=== PATIENT | female | born 2000 | race Hispanic/Latino ===

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

== ENCOUNTER 2023-03-25 09:58 | Emergency (ER) | payer SELFPAY ==
[2023-03-25] MEDS ORDERED: NA CHLORIDE 0.9% 1,000 ML ONE ×2 (10:31→11:53)
[2023-03-25] MEDS ORDERED: IBUPROFEN 200 MG TAB PO ONE (10:35)
[2023-03-25] MEDS ORDERED: ACETAMINOPHEN 500 MG TAB ONE (10:35)
[2023-03-25 11:02] LABS: Absolute Lymphocytes (CBC) 1.1 K/uL (0.7-4.9); Hematocrit 38.3 % (36.0-45.0); Lymphocytes % 6.1 % (15.3-44.8); MCV 86.2 fL (80-100); MPV 7.4 fL (7.6-11.3); Platelets 409 thou/uL (152-406); RBC Red Blood Cell Count 4.44 M/uL (3.86-4.86)
--- OUTSIDE RECORDS SUMMARY | 2023-03-25 11:20 | XMS REPORT | Continuity of Care Document ---
:2000 Author Organization [facility] t Address [address] [facility] [address] [place] [address] Care Team Providers Name Role Phone Salma Castellanos Attending Clinician Unavailable Doctor Unassigned, Reform Attending Clinician Unavailable Bharathi Chaney Admitting Clinician Unavailable Payers Payer Name Policy Type Policy Number Effective Date Expiration Date S ource Problems Condition Condition Condition Status Onset Resolution Last Treating Co mments Source Name Details Category Date Date Treatment Clinician Date Influenza Influenza Disease Active 2017-08 Uni vers vaccinatio vaccinatio 2 it y [place] [facility] Supervisio Supervisio Disease Active 2017-08 [place] of high n of high 2-06 ity of risk risk 00:00: [place] , , 00 Me dical antepartum antepartum Br anch Hypertrigl Hypertrigl Disease Active [place] yceridemia yceridemia 03-26 it y of 00:00: [place] [address] Medical Branch Allergies, Adverse Reactions, Alerts Allergy Allergy Status Severity Reaction(s) Onset Inactive Treating Comm ents Source Name Type Date Date Clinician No Known DA Active [facility] 812 Clear s 00:00: [address] No Known DA Active U [facility] Allergie 8-12 Clear s 00:00: [facility] Social History Social Habit Start Date Stop Date Quantity Comments Source ASSERTION 2018-05-14 [facility] 00:00:00 Medical Branch Alcohol intake 2019-04-29 2019-04-29 0 /d [facility] 00:00:00 00:00:00 Medical Branch Sex Assigned At [birth year] [facility] 00:00:00 00:00:00 Medical Branch Smoking Status Start Date Stop Date Source Never smoker [facility] Medications Ordered Filled Start Stop Current Ordering Indication Dosage Frequency Signature Comments Components Source Medication Medication Date Date Medication? Clinician (SIG) Name Name 2017-08 Yes [id number] 1{tbl} Take 1 U nivers multivitami 2-06 tablet by ity of n ( 00:00: mouth [place] VITAMIN) 00 daily. Medical tablet Branch 2017-08 Yes [id number] 1{tbl} Take 1 U nivers multivitami 2-06 tablet by ity of n ( 00:00: mouth [place] VITAMIN) 00 daily. [facility] Branch Immunizations Ordered Filled Immunization Date Status Comments Sourc e Immunization Name Name HPV9 2018-02-13 Completed [facility] 00:00[facility] [facility] HPV9 2018-02-13 Completed University 00:00:[address] [facility] HPV9 2017-12-12 Completed University 00:00:[address] [facility] HPV9 2017-12-12 Completed University 00:00:[address] [facility] TDAP (ADACEL) 2013-02-11 Completed University of VACCINE 00:00:[address] [facility] TDAP (ADACEL) 2013-02-11 Completed University of VACCINE 00:00:[address] [facility] Procedures Procedure Date / Time Performed Performing Clinician Ilac e EXTERNAL PROVIDER - 2019-03-26 05:01:00 Doctor Unassigned, [facility] Medical Branch Encounters Start End Encounter Admission Attending Care Care Encounter Source Date/Time Date/Time Type Type Clinicians Facility Department ID 2022-09-23 2022-09-23 Outpatient LIAN Castellanos, PAMELACL OUTD [id number] [facility] 14:53[facility]00 [facility]53[facility] 2021-05-04 2021-05-04 Letter Doctor JENNIFER [id number] Univers 00:00:00 00:00:00 (Out) Unassigned, DONTA [id number] ity of [facility] 4.2.7.2.686 [place] [id number] [facility] 044 Branch 2019-03-26 2019-03-26 Orders Doctor JENNIFER [id number] Univers 00:00:00 00:00:00 Only Unassigned, DONTA 350.1.13.10 ity of [place] [facility] 4.2.7.2.686 [place] [phone] [facility] 009 Branch Results Test Description Test Time Test Comments Results Result [facility] e Comments - US PELVIS 2022-09-24 COM[facility] 2000 Sex: F Name: ADA CALIX [facility] : 2000 Age/S: 22 / F [address] [place] [address] Bl Unit #: [id number] Loc: [place] [address] Phys: Salma Castellanos MD Acct: [id number] Dis Date: Status: DEP CLI PHONE #: [phone] Exam Date: 09/23/2022 180 FAX #: [phone] Reason: AMENORRHEA. EXAMS: CPT CODE: [id number] US PELVIS COMPLETE 39131 PROCEDURE INFORMATION: Exam: US Pelvis Complete (Transabdominal), Pelvis (Transvaginal), and US Duplex Artery or Vein (Ovaries) Limited Exam date and time: 09/23/2022 3:18 PM Age: 22 years old Clinical indication: Menstruation abnormalities; Amenorrhea TECHNIQUE: Imaging protocol: Real-time transabdominal and transvaginal pelvic ultrasound (complete) with image documentation. Transvaginal imaging was used for better evaluation of the endometrium, adnexa, and/or cervix. Real-time duplex ultrasound scan of the arterial or venous flow of the ovaries with B-mode, color Doppler flow and spectral waveform analysis. Complete Pelvis, Limited Duplex. Duplex exam was performed to evaluate for torsion and other vascular conditions. COMPARISON: No relevant prior studies available. FINDINGS: Uterus: The uterus measures 8.2 x 4.2 x 4.7 cm and demonstrates a thickened 1.6 cm endometrial stripe. There are small nabothian cysts in the cervix with trace fluid in the endocervical canal. Right ovary/adnexa: The right ovary measures 3.6 x 1.7 x 2.2 cm. No mass. Normal ovarian blood flow. Left ovary/adnexa: The left ovary measures 3.1 x 2.5 x 2.1 cm. No mass. Normal ovarian blood flow. Intraperitoneal space: No intraperitoneal fluid. Urinary bladder: Normal. IMPRESSION: 1. Thickened endometrial stripe, to be correlated with patient's menstrual phase. 2. Nabothian cysts in the cervix with trace fluid in the endocervical canal. at 1029 Reported and signed by: Jasen Suresh M.D. CC: Salma Castellanos MD Technologist: Sarah Belcher Trnrib Date/Time: 09/24/2022 (1029) OksanaTDO Orig Print D/T: S: 09/24/2022 (1029) Probe: PAGE 1 Signed Report - US TRANSVAGINAL 2022-09-24 NON OB 00:00:00 [facility] : 2000 Sex: F Name: ADA CALIX [facility] [place] : 2000 Age/S: 22 / F [address] [place] [address] Unit #: [id number] Loc: [place] [address] Phys: Salma Castellanos MD Acct: [id number] Dis Date: Status: DEP CLI PHONE #: [phone] Exam Date: 09/23/20221807 FAX #: [phone] Reason: AMENORRHEA. EXAMS: CPT CODE: [id number] [place] [address] PROCEDURE INFORMATION: Exam: US Pelvis Complete (Transabdominal), Pelvis (Transvaginal), and US Duplex Artery or Vein (Ovaries) Limited Exam date and time: 09/23/2022 3:18 PM Age: 22 years old Clinical indication: Menstruation abnormalities; Amenorrhea TECHNIQUE: Imaging protocol: Real-time transabdominal and transvaginal pelvic ultrasound (complete) with image documentation. Transvaginal imaging was used for better evaluation of the endometrium, adnexa, and/or cervix. Real-time duplex ultrasound scan of the arterial or venous flow of the ovaries with B-mode, color Doppler flow and spectral waveform analysis. Complete Pelvis, Limited Duplex. Duplex exam was performed to evaluate for torsion and other vascular conditions. COMPARISON: No relevant prior studies available. FINDINGS: Uterus: The uterus measures 8.2 x 4.2 x 4.7 cm and demonstrates a thickened 1.6 cm endometrial stripe. There are small nabothian cysts in the cervix with trace fluid in the endocervical canal. Right ovary/adnexa: The right ovary measures 3.6 x 1.7 x 2.2 cm. No mass. Normal ovarian blood flow. Left ovary/adnexa: The left ovary measures 3.1 x 2.5 x 2.1 cm. No mass. Normal ovarian blood flow. Intraperitoneal space: No intraperitoneal fluid. Urinary bladder: Normal. IMPRESSION: 1. Thickened endometrial stripe, to be correlated with patient's menstrual phase. 2. Nabothian cysts in the cervix with trace fluid in the endocervical canal. at 1029 Reported and signed by: Jasen Suresh M.D. CC: Salma Castellanos MD Technologist: Sarah Belcher Trnscb Date/Time: 09/24/2022 (3112) t.[email or web address] Orig Print D/T: S: 09/24/2022 (6165) Probe: [id number] PAGE 1 Signed Report SURGICAL SPECIMENS 2019-03-19 08:38:00 --------RUN DATE: 03/19/19 [place] [facility] *LIVE* PAGE 1 RUN TIME: 837 Specimen Inquiry RUN USER: INTERFACE --------PATIENT: ADA CALIX LOC: RADHA U #: [id number] AGE/SX: 18/F ROOM: [facility] RE03/15/19[facility] DR: Salma Castellanos MD : [birth year] BED: 1 DIS: STATUS: ADM IN TLOC: -------- SPEC #: [id number] RECD: 03/17/19 STATUS: DONNA REYES #: [id number] DELANEY: 03/17/19 [facility] DR: Salma Castellanos MD ENTERED: 03/18/19 SP TYPE: SURG SPEC OTHR DR: Jose Ramon Edmond JR, MD, Jaswinder J DOORDERED: LEVEL 4 CODES: [id number] - PLACENTA, NOS COPIES TO: Salma Castellanos MD [address] [place] [email or web address] Jose Ramon Edmond JR, MD [address] [address] Bharathi Chaney [address] [place] [address] PROCEDURES: LEVEL 4 (Incomplete) TISSUES: 1. PLACENTA, NOS - Placenta, 3rd trimester. FINAL DIAGNOSIS Placenta, 3rd trimester: Histologically mature schmitz placenta (545 g, 60th percentile for gestational age). GROSS AND MICROSCOPIC GROSS EXAMINATION: Received in formalin placenta is a 545 g 16 x 16 x 2.2 cm placenta. The surface is bluegray with tortuous vessels on the surface. Maternal surface is intact with some adherent hemorrhage. The centrally inserted 3 vessel umbilical cord measures 22 cm in length 1.1 cm in diameter. The membranes are thin and translucent. The parenchyma is beefy red with small calcifications SECTION CODE: (A) Membranes (B) umbilical cord (C)-(E) placental parenchyma. CONTINUED ON NEXT PAGE --------RUN DATE: 03/19/19 [place] [facility] *LIVE* PAGE 2 RUN TIME: 837 Specimen Inquiry RUN USER: INTERFACE --------SPEC #: [id number] PATIENT: ADA CALIX #[id number] (Continued) GROSS AND MICROSCOPIC (Continued) MICROSCOPIC EXAMINATION: Sections of the umbilical cord reveal three vessels without significant inflammation. The membranes are unremarkable. The surface of the placenta does not show a significant inflammatory infiltrate. Maturation is appropriate for gestational age. The underlying maternal decidua beneath the placenta contains a mixed inflammatory infiltrate. POST-OP DIAGNOSIS Congenital anomalies, delivered PRE-OP DIAGNOSIS Congenital anomalies Signed SIGNATURE ON FILE Dom Mullen DO 03/19/19 0838 -------- END OF REPORT CBC W/AUTO DIFF 2019-03-18 07:16:00 Test Item Value Reference Range Interpretation Comme nts WHITE BLOOD CELL (test code = WBC) 11.79 x10 3/uL 4.5-11.0 H RED BLOOD CELL (test code = RBC) 2.28 x10 6/uL 3.54-5.02 L HEMOGLOBIN (test code = HGB) 7.4 g/dL 11.0-15.0 L HEMATOCRIT (test code = HCT) 21.7 % 33.0-45.0 L MEAN CELL VOLUME (test code = MCV) 95.2 fL 81.0-99.0 N MEAN CELL HGB (test code = MCH) 32.5 pg 27.0-33.0 N MEAN CELL HGB CONCETRATION (test code = MCHC) 34.1 g/dL 33.0-37. 0 N RED CELL DISTRIBUTION WIDTH CV (test code = RDW) 13.3 % 11.5- 14.5 N RED CELL DISTRIBUTION WIDTH SD (test code = RDW-SD) 46.3 fL 37 .0-54.0 N PLATELET COUNT (test code = PLT) 141 x10 3/uL 150-400 L MEAN PLATELET VOLUME (test code = MPV) 9.2 fL 7.0-9.0 H NEUTROPHIL % (test code = NT%) 77.8 % 56.0-77.0 H IMMATURE GRANULOCYTE % (test code = IG%) 0.5 % 0.0-2.0 N LYMPHOCYTE % (test code = LY%) 16.5 % 14.0-32.0 N MONOCYTE % (test code = MO%) 4.7 % 4.8-9.0 L EOSINOPHIL % (test code = EO%) 0.3 % 0.3-3.7 N BASOPHIL % (test code = BA%) 0.2 % 0.0-2.0 N NUCLEATED RBC % (test code = NRBC%) 0.0 % 0-0 N NEUTROPHIL # (test code = NT#) 9.18 x10 3/uL 2.0-7.6 H IMMATURE GRANULOCYTE # (test code = IG#) 0.06 x10 3/uL 0.00-0.03 H LYMPHOCYTE # (test code = LY#) 1.95 x10 3/uL 1.0-3.8 N MONOCYTE # (test code = MO#) 0.55 x10 3/uL 0.1-0.8 N EOSINOPHIL # (test code = EO#) 0.03 x10 3/uL 0.0-0.2 N BASOPHIL # (test code = BA#) 0.02 x10 3/uL 0.0-0.2 N NUCLEATED RBC # (test code = NRBC#) 0.00 x10 3/uL 0.0-0.1 N MANUAL DIFF REQUIRED (test code = MDIFF) NO COMMENTS: POD #1 and #2COMPREHENSIVE METABOLIC [id number] 07:31:00 Test Item Value Reference Range Interpretation Comments SODIUM (test code = NA) 138 mEq/L 134-147 N POTASSIUM (test code = 4.0 mEq/L 3.4-5.0 N K) CHLORIDE (test code = 106 mEq/L 100-108 N CL) CARBON DIOXIDE (test 25 mEq/L 21-33 N code = CO2) ANION GAP (test code = 11 0-20 N GAP) GLUCOSE (test code = 67 mg/dL 70-110 L GLU) BLOOD UREA NITROGEN 11 mg/dL 7-18 N (test code = BUN) GLOMERULAR FILTRATION 92.4 110-120 L Units of measure = RATE (test code = GFR) ml/mi n/1.73 m2 CREATININE (test code = 0.8 mg/dL 0.6-1.3 N CREAT) TOTAL PROTEIN (test 4.4 g/dL 6.4-8.2 L code = PROT) ALBUMIN (test code = 1.90 g/dL 3.4-5.0 L ALB) CALCIUM (test code = 7.7 mg/dL 8.0-10.5 L CA) BILIRUBIN TOTAL (test 0.30 mg/dL 0.0-1.0 N code = BILT) SGOT/AST (test code = 25 IUnit/L 15-37 N AST) SGPT/ALT (test code = 12 IUnit/L 15-65 L ALT) ALKALINE PHOSPHATASE 107 IUnit/L 30-165 N TOTAL (test code = ALKP) COMMENTS: POD #1CBC W/AUTO [id number] 06:53:00 Test Item Value Reference Range Interpretation Comments WHITE BLOOD CELL (test code = 15.05 x10 3/uL 4.5-11.0 H WBC) RED BLOOD CELL (test code = 2.65 x10 6/uL 3.54-5.02 L RBC) HEMOGLOBIN (test code = HGB) 8.7 g/dL 11.0-15.0 L HEMATOCRIT (test code = HCT) 24.9 % 33.0-45.0 L MEAN CELL VOLUME (test code = 94.0 fL 81.0-99.0 N MCV) MEAN CELL HGB (test code = 32.8 pg 27.0-33.0 N MCH) MEAN CELL HGB CONCETRATION 34.9 g/dL 33.0-37.0 N (test code = MCHC) RED CELL DISTRIBUTION WIDTH CV 13.1 % 11.5-14.5 N (test code = RDW) RED CELL DISTRIBUTION WIDTH SD 44.9 fL 37.0-54.0 N (test code = RDW-SD) PLATELET COUNT (test code = 131 x10 3/uL 150-400 L PLT) MEAN PLATELET VOLUME (test 9.0 fL 7.0-9.0 N code = MPV) NEUTROPHIL % (test code = NT%) 80.4 % 56.0-77.0 H IMMATURE GRANULOCYTE % (test 0.7 % 0.0-2.0 N code = IG%) LYMPHOCYTE % (test code = LY%) 13.6 % 14.0-32.0 L MONOCYTE % (test code = MO%) 5.0 % 4.8-9.0 N EOSINOPHIL % (test code = EO%) 0.1 % 0.3-3.7 L BASOPHIL % (test code = BA%) 0.2 % 0.0-2.0 N NUCLEATED RBC % (test code = 0.0 % 0-0 N NRBC%) NEUTROPHIL # (test code = NT#) 12.09 x10 3/uL 2.0-7.6 H IMMATURE GRANULOCYTE # (test 0.11 x10 3/uL 0.00-0.03 H code = IG#) LYMPHOCYTE # (test code = LY#) 2.05 x10 3/uL 1.0-3.8 N MONOCYTE # (test code = MO#) 0.76 x10 3/uL 0.1-0.8 N EOSINOPHIL # (test code = EO#) 0.01 x10 3/uL 0.0-0.2 N BASOPHIL # (test code = BA#) 0.03 x10 3/uL 0.0-0.2 N NUCLEATED RBC # (test code = 0.00 x10 3/uL 0.0-0.1 N NRBC#) MANUAL DIFF REQUIRED (test NO code = MDIFF) COMMENTS: POD #1 and #2CORD ARTERIAL BLOOD [id number] 21:24:00 Test Item Value Reference Range Interpretation Comments CORD BLOOD PH (test code = PH/C) 7.23 7.20-7.30 N CORD BLOOD PCO2 (test code = 56 MMHG 45-50 H PCO2/C) CORD BLOOD PO2 (test code = 12 mmHg 15-25 L PO2/C) CORD BLOOD HCO3 (test code = 24 mmol/L 15-25 N HCO3/C) BASE EXCESS CORD (test code = -4.0 mmol/L -5-5 N CHAVO/C) O2 SATURATION (test code = O2S/C) 10 % 25-45 L RAPID PLASMA [id number] 11:21:00 Test Item Value Reference Range Interpretation Comments RAPID PLASMA REAGIN (test code = NONREACTIVE NONREACTIVE RPR) AG HEPATITIS B [id number] 11:21:00 Test Item Value Reference Range Interpretation Comments AG HEPATITIS B SURFACE NON REACTIVE INDEX NonReactive (test code = HBSAG) AB HIV 1 11:21:00 Test Item Value Reference Range Interpretation Comments AB HIV 1 2 (test code = NONREACTIVE INDEX NONREACTIVE [id number]) RAPID PLASMA [id number] 20:32:00 Test Item Value Reference Range Interpretation Comments RAPID PLASMA REAGIN (test code = RPR) NONREACTIVE AG HEPATITIS B [id number] 20:32:00 Test Item Value Reference Range Interpretation Comments AG HEPATITIS B SURFACE NON REACTIVE INDEX NonReactive (test code = HBSAG) AB HIV 1 20:32:00 Test Item Value Reference Range Interpretation Comments AB HIV 1 2 (test code = NONREACTIVE INDEX NONREACTIVE [id number]) RAPID PLASMA [id number] 15:21:00 Test Item Value Reference Range Interpretation Comments RAPID PLASMA REAGIN (test code = RPR) NONREACTIVE AG HEPATITIS B [id number] 15:21:00 Test Item Value Reference Range Interpretation Comments AG HEPATITIS B SURFACE NON REACTIVE INDEX NonReactive (test code = HBSAG) AB HIV 1 15:21:00 Test Item Value Reference Range Interpretation Comments AB HIV 1 2 (test code = JHS27RI) INDEX NONREACTIVE CBC W/AUTO [id number] 14:38:00 Test Item Value Reference Range Interpretation Comments WHITE BLOOD CELL (test code = 6.65 x10 3/uL 4.5-11.0 N WBC) RED BLOOD CELL (test code = 3.59 x10 6/uL 3.54-5.02 N RBC) HEMOGLOBIN (test code = HGB) 11.5 g/dL 11.0-15.0 N HEMATOCRIT (test code = HCT) 33.6 % 33.0-45.0 N MEAN CELL VOLUME (test code = 93.6 fL 81.0-99.0 N MCV) MEAN CELL HGB (test code = MCH) 32.0 pg 27.0-33.0 N MEAN CELL HGB CONCETRATION 34.2 g/dL 33.0-37.0 N (test code = MCHC) RED CELL DISTRIBUTION WIDTH CV 13.0 % 11.5-14.5 N (test code = RDW) RED CELL DISTRIBUTION WIDTH SD 44.8 fL 37.0-54.0 N (test code = RDW-SD) PLATELET COUNT (test code = 169 x10 3/uL 150-400 N PLT) MEAN PLATELET VOLUME (test code 9.0 fL 7.0-9.0 N = MPV) NEUTROPHIL % (test code = NT%) 68.3 % 56.0-77.0 N IMMATURE GRANULOCYTE % (test 0.9 % 0.0-2.0 N code = IG%) LYMPHOCYTE % (test code = LY%) 24.4 % 14.0-32.0 N MONOCYTE % (test code = MO%) 5.9 % 4.8-9.0 N EOSINOPHIL % (test code = EO%) 0.2 % 0.3-3.7 L BASOPHIL % (test code = BA%) 0.3 % 0.0-2.0 N NUCLEATED RBC % (test code = 0.0 % 0-0 N NRBC%) NEUTROPHIL # (test code = NT#) 4.55 x10 3/uL 2.0-7.6 N IMMATURE GRANULOCYTE # (test 0.06 x10 3/uL 0.00-0.03 H code = IG#) LYMPHOCYTE # (test code = LY#) 1.62 x10 3/uL 1.0-3.8 N MONOCYTE # (test code = MO#) 0.39 x10 3/uL 0.1-0.8 N EOSINOPHIL # (test code = EO#) 0.01 x10 3/uL 0.0-0.2 N BASOPHIL # (test code = BA#) 0.02 x10 3/uL 0.0-0.2 N NUCLEATED RBC # (test code = 0.00 x10 3/uL 0.0-0.1 N NRBC#) MANUAL DIFF REQUIRED (test code NO = DAVIS) - MRI ABDOMEN W/O [id number] 10:32:00 FAX: Abdirahman Fay MD [phone] [place]: St: PRE FAX: Bharathi Chaney [phone] ----- Name: ADA CALIX [facility] : 2000 Age/S: 18/F [address] [place] [address] Unit #: [id number] Loc: [place] [address] Phys: Abdirahman Shelton MD Acct: [id number] Dis Date: Status: PRE CLI PHONE #: [phone] Date: 11/20/2018 1319 FAX #: [phone] Reason: LEFT HYRDONEPHROSIS EXAMS: CPT CODE: [id number] MRI ABDOMEN W/O CON 46624 MRI WITHOUT IV CONTRAST 11/20/2018 AT 1117 HOURS. CLINICAL HISTORY: Left hydronephrosis by ultrasound. LMP: Not available at the time of dictation. REPORTED EGA: 23 weeks. COMPARISON STUDIES: None. ADMINISTERED CONTRAST: None. FINDINGS: Multiplanar SSFSE T2, T1 GRE and 2D FIESTA sequences of the fetus and maternal pelvis were obtained without IV contrast. Please note that examination is tailored for assessment of the abdomen and pelvis in an effort to address the sonographic abnormality and is not intended to serve as a full anatomy screening. For the latter please refer to the anatomy screening ultrasound. NEURAL AXIS: No acute intracranial finding. Themidline structures are well formed. No hydrocephalus or mass occupying lesion. Grossly unremarkable spine with no signs of spinal dysraphism. CHEST: Symmetric lung volumes are visualized. No diaphragmatic hernia. The cardiac silhouette is not enlarged. The cardiac apex projects to the left. ABDOMEN: Normal abdominal situs. Normal appearing right kidney in the right retroperitoneum without focal lesion or hydronephrosis. The left kidney is difficult to identify with a fluid filled stomach and multiple normal caliber bowel loops occupying most of the left abdomen. A urine distended bladder is noted with an approximately 14 x 13 mm fluid distended structure in the left pelvis superolaterally to the bladder dome. Definite origin of this structure is difficult to determine by motion and relatively decreased contrast resolution. A three-vessel umbilical cord is seen with normalcord insertion. OTHER FINDINGS: Anterior placenta with partial right wraparound. No placenta previa or retroplacental hemorrhage. The cervix is closed measuring 2.7 cm in length. MATERNAL ABDOMEN: Severe bilateral maternal hydronephrosis/hydroureter, presumably from distal extrinsic compression by thegravid uterus. Remaining solid organs show no gross focal abnormality. The maternal bladder is decomp ressed. No adnexal masses or free pelvic fluid. PAGE 1 Signed Report (CONTINUED) FAX: Abdirahman Fay MD [phone] [place]: St: PRE FAX: Bharathi Chaney [phone] Name: ADA CALIX [facility] : 2000 Age/S: 18/F [address] [place] [address] Bl Unit #: [id number] Loc: [place] [address] Phys: Abdirahman Shelton MD Acct: [id number] Dis Date: Status: PRE CLI PHONE #: [phone] Exam Date: 11/20/2018 1319 FAX #: [phone] Reason: LEFT HYRDONEPHROSIS EXAMS: CPT CODE: [id number] MRI ABDOMEN W/O CON 10220 (Continued) IMPRESSION: 1. Unremarkable right kidney with limited assessment of the left renal fossa by persistent movement and relatively decreased contrast resolution. 2. Indeterminate fluid distended structure in the left pelvis superolaterally to the bladder corresponding to the areaof reported abnormality by ultrasound. It is unclear whether this represents a hydronephrotic left pelvic kidney, GI duplication cyst or other cystic pelvic lesion. Follow-up MRI at a more advanced gestational age might be helpful to allow for interval growth and better delineation of the underlying anatomy. 3. Severe bilateral maternal hydronephrosis/hydroureter, presumably from distal extrinsic compression by the gravid uterus. 4. Right anterior placenta, nonprevia without retroplacental hemo rrhage. The cervix is closed. 5. No maternal adnexal masses. No free fluid. This case was reviewed with a second observer who agrees with the findings. SL: ER-H at 1032 Reported and signed by: jL Aguilar M.D. CC: Abdirahman Shelton MD; Bharathi Chaney DO Technologist: RT James(R)(MR) Trnscrd Date/Time/By: 11/23/2018 (1032) : By: [email or web address] Orig Print D/T: S: 11/23/2018 (1036) PAGE 2 Signed Report Notes Date/Time Note Provider Source 2019-03-19 11:15:00-00:[address] [facility] ([facility] OB Disch REPORT#:[id number] REPORT STATUS: Signed DATE:03/19/19 TIME: 1115 PATIENT: ADA CALIX UNIT #: [id number] ROOM/BED: [place] [address] : [birth year] AGE: 18 SEX: F ATTEND: Salomon Castellanos MD ADM AUTHOR: Salma Castellanos MD * ALL edits or amendments must be made on the [employer] Oy/computer document * Subjective Subjective Admission EGA (wks/days): 40 weeks EGA at delivery (wks/days): 40 weeks Objective General VS: Vital Signs Date Temp Pulse Resp B/P B/P Mean Pulse Ox FiO2 03/18-03/19 36.7-36.9 88-95 16-18 116-124/63-76 Last Documented: Result Date Time B/P 123/76 03/19 0743 Temp 36.9 03/19 0743 Pulse 92 03/19 0743 Resp 16 03/19 0743 B/P Mean 106.0 03/17 0806 Pulse Ox 99 03/17 0756 Patient Weight Weight (lb): 137 Weight (oz): Weight (kg): 62.142 Physical Exam Cardiac: normal rhythm, no clinically sig murmur , no gallops, no rubs Lungs: clear to auscultation, no rales, no rhonc hi Neuro: Exam: alert, oriented x3, normal speech Abdomen: post gravid, soft, no abnormal tenderne ss, no guarding, no rebound tenderness, normoactive bowel sounds Incision site: well approximated edges, dry, no drainage, no inflammation Uterus: non-tender Fundus: non-tender Lochia: normal Episiotomy or laceration: none Vulva/Perineum: edematous vulva CVA tenderness: none Lower extremities: Edema: trace Results Findings/Data: Laboratory Tests: 03/18 0445 Hematology WBC (4.5 - 11.0 x10 3/uL) 11.79 H RBC (3.54 - 5.02 x10 6/uL) 2.28 L Hgb (11.0 - 15.0 g/dL) 7.4 L Hct (33.0 - 45.0 %) 21.7 L MCV (81.0 - 99.0 fL) 95.2 MCH (27.0 - 33.0 pg) 32.5 MCHC (33.0 - 37.0 g/dL) 34.1 RDW (11.5 - 14.5 %) 13.3 Plt Count (150 - 400 x10 3/uL) 141 L MPV (7.0 - 9.0 fL) 9.2 H Neut % (Auto) (56.0 - 77.0 %) 77.8 H Lymph % (Auto) (14.0 - 32.0 %) 16.5 Livingston % (Auto) (4.8 - 9.0 %) 4.7 L Eos % (Auto) (0.3 - 3.7 %) 0.3 Baso % (Auto) (0.0 - 2.0 %) 0.2 Neut # (Auto) (2.0 - 7.6 x10 3/uL) 9.18 H Lymph # (Auto) (1.0 - 3.8 x10 3/uL) 1.95 Livingston # (Auto) (0.1 - 0.8 x10 3/uL) 0.55 Eos # (Auto) (0.0 - 0.2 x10 3/uL) 0.03 Baso # (Auto) (0.0 - 0.2 x10 3/uL) 0.02 Abs Immat Gran (auto) (0.00 - 0.03 x10 3/uL) 0. 06 H Add Manual Diff NO Immature Gran % (0.0 - 2.0 %) 0.5 Nucleated RBC % (0 - 0 %) 0.0 Nucleated RBCs # (Man) (0.0 - 0.1 x10 3/uL) 0.0 0 Discharge Summary Discharge Summary Date of admission: Date of admission: 03/15/19 Hospital course: induction of labor, primary LTC S in labor (for FHR abnormalities), nml postop/postpart care, vulva edema Baby A: status: live born Gender: male 1 minute: 8 5 minutes: 9 Plan: routine care, discharge today, ice pack to perineum Instructions: routine instr sheet given, instr a nd warnings rev'd, specific instr as noted Diet: regular Activity and restrictions: up ad marco, may shower , pelvic rest, no intercourse for 6 wks, no driving Contraception discussed: abstinence for 4-6 week s, will discuss at PP visit Discharge meds: Continue taking these medications: PNV/FE FUM/FA ( MULTIVITAMIN) 1 TAB TAB 1 TABLET ORAL DAILY. FERROUS SULFATE (FEOSOL) 325 MG TAB 325 MILLIGRAM ORAL DAILY. Start taking the following new medications: IBUPROFEN (MOTRIN) 800 MG TAB 800 MILLIGRAM ORAL EVERY 8 HR NEEDED. as nee ded for ABDOMINAL CRAMPS Qty = 45 No Refills ACETAMINOPHEN/CODEINE (TYLENOL WITH CODEINE #3 3 00/30 MG) 1 TAB TAB 1 TABLET ORAL EVERY 6 HOURS NEEDED. as neede d for ABDOMINAL CRAMPS Qty = 28 No Refills Prescriptions: on chart Discharge condition: stable Discharge to: home Follow up in: 3 weeks at 1119 RPT #:[id number] END OF REPORT 2019-03-18 12:36:00-00:00 [facility] ([facility]) OB Postpart Progr Note REPORT#:[id number] REPORT STATUS: Signed DATE:03/18/19 TIME: 1236 PATIENT: ADA CALIX UNIT #: [id number] ROOM/BED: [place] [address] : 99 AGE: 18 SEX: F ATTEND: Salma Castellanos MD ADM AUTHOR: Salma Castellanos MD * ALL edits or amendments must be made on the [employer]/computer document * Subjective Subjective EGA weeks/days: 40 weeks Status/Day: post , post operative (day 2) Objective General VS: Vital Signs: Date Time Temp Pulse Resp B/P B/P Pulse O2 O2 F low FiO2 Mean Ox Delivery Rate 03/18 0800 36.7 77 16 137/79 03/17 1518 37.2 87 17 127/70 Patient Weight Weight (lb): 137 Weight (oz): Weight (kg): 62.142 Physical Exam Cardiac: normal sinus rhythm Lungs: clear to auscultation Neuro: Exam: alert, oriented x3, normal speech Abdomen: soft, no abnormal tenderness, no guardi ng, no rebound tenderness, normoactive bowel sounds Incision site: well approximated edges, dry, no drainage, no inflammation Uterus: non-tender Fundus: non-tender Lochia: normal Lacerations: Perineal laceration(s): None Episiotomy or laceration: none Vulva/Perineum: normal, no hematoma CVA tenderness: none Lower extremities: Edema: trace Result Findings/Data: Laboratory Tests: 03/18 0445 Hematology WBC (4.5 - 11.0 x10 3/uL) 11.79 H RBC (3.54 - 5.02 x10 6/uL) 2.28 L Hgb (11.0 - 15.0 g/dL) 7.4 L Hct (33.0 - 45.0 %) 21.7 L MCV (81.0 - 99.0 fL) 95.2 MCH (27.0 - 33.0 pg) 32.5 MCHC (33.0 - 37.0 g/dL) 34.1 RDW (11.5 - 14.5 %) 13.3 Plt Count (150 - 400 x10 3/uL) 141 L MPV (7.0 - 9.0 fL) 9.2 H Neut % (Auto) (56.0 - 77.0 %) 77.8 H Lymph % (Auto) (14.0 - 32.0 %) 16.5 Livingston % (Auto) (4.8 - 9.0 %) 4.7 L Eos % (Auto) (0.3 - 3.7 %) 0.3 Baso % (Auto) (0.0 - 2.0 %) 0.2 Neut # (Auto) (2.0 - 7.6 x10 3/uL) 9.18 H Lymph # (Auto) (1.0 - 3.8 x10 3/uL) 1.95 Livingston # (Auto) (0.1 - 0.8 x10 3/uL) 0.55 Eos # (Auto) (0.0 - 0.2 x10 3/uL) 0.03 Baso # (Auto) (0.0 - 0.2 x10 3/uL) 0.02 Abs Immat Gran (auto) (0.00 - 0.03 x10 3/uL) 0. 06 H Add Manual Diff NO Immature Gran % (0.0 - 2.0 %) 0.5 Nucleated RBC % (0 - 0 %) 0.0 Nucleated RBCs # (Man) (0.0 - 0.1 x10 3/uL) 0.0 0 Diagnosis, Assessment Plan Diagnosis, Assessment Plan Assessment: nml progress, anemia r/t: (acute blood loss) Plan: routine care, discharge tomorro w Consultation(s): Consultation: anesthesia Plan discussed with: patient, nurse at 1237 RPT #:[id number] END OF REPORT 2019-03-17 15:23:00-00:[address] [facility] ([facility]) Pain Management Progress Note REPORT#:[id number] REPORT STATUS: Signed DATE:03/17/19 TIME: 152 PATIENT: DAA CALIX UNIT #: [id number] ROOM/BED: [place] [address] : 99 AGE: 18 SEX: F ATTEND: Salomon Castellanos MD ADM AUTHOR: Yonis Hinkle MD * ALL edits or amendments must be made on the el [employer] document * Diagnosis, Assessment Plan Free text A P: Pain Management Rounds: Patient seen and examined Epidural in place and working well No side effects noted Epidural d/c today per request at 1523 RPT #:[id number] END OF REPORT 2019-03-17 12:03[facility]-00[facility]00 [facility] OB Postpart Progr Note REPORT#:[id number] REPORT STATUS: Signed DATE:03/17/19 TIME: 1203 PATIENT: ADA CALIX UNIT #: [id number] ROOM/BED: [place] [address] : 99 AGE: 18 SEX: F ATTEND: Salomon Castellanos MD ADM AUTHOR: Salma Castellanos MD * ALL edits or amendments must be made on the el [employer]/computer document * Subjective Subjective EGA weeks/days: 40 weeks Status/Day: post Objective General VS: Vital Signs: Date Time Temp Pulse Resp B/P B/P Pulse O2 O2 F low FiO2 Mean Ox Delivery Rate 08/14 0806 37.0 08/14 0806 106.0 08/14 0806 72 137/84 08/14 0756 80 99 08/14 0755 90 86 08/14 0753 110.0 08/14 0753 76 148/83 08/14 0751 78 98 08/14 0746 80 98 08/14 0741 77 99 08/14 0736 100.0 08/14 0736 85 141/77 98 08/14 0731 81 98 08/14 0726 89 98 08/14 0721 102.0 08/14 0721 100 148/74 98 08/14 0716 79 99 08/14 0711 77 98 08/14 0706 106.0 08/14 0706 61 140/83 99 08/14 0701 63 98 08/14 0656 62 98 08/14 0651 109.0 08/14 0651 59 144/84 99 08/14 0646 77 99 08/14 0641 83 98 08/14 0637 103.0 08/14 0637 77 139/79 08/14 0636 82 99 08/14 0631 76 98 08/14 0626 75 99 08/14 0622 114.0 08/14 0622 68 153/89 08/14 0621 71 98 08/14 0616 82 98 08/14 0611 78 99 08/14 0608 111.0 08/14 0608 88 156/82 08/14 0606 99 99 08/14 0605 107 91 08/14 0601 83 99 08/14 0556 89 99 08/14 0551 105.0 08/14 0551 65 145/78 98 08/14 0546 69 98 08/14 0541 66 98 08/14 0536 112.0 08/14 0536 75 147/89 99 08/14 0531 80 99 08/14 0526 92 100 08/14 0521 115.0 08/14 0521 67 152/89 99 08/14 0516 70 98 08/14 0511 67 98 08/14 0506 114.0 08/14 0506 73 149/90 98 08/14 0501 68 98 08/14 0456 66 99 08/14 0451 111.0 08/14 0451 66 146/87 99 08/14 0446 65 99 08/14 0441 64 99 08/14 0436 109.0 08/14 0436 73 143/87 99 08/14 0431 72 99 08/14 0426 72 98 08/14 0421 105.0 08/14 0421 75 138/82 99 08/14 0416 70 98 08/14 0411 69 98 08/14 0406 106.0 08/14 0406 67 137/84 99 08/14 0401 69 98 08/14 0356 73 97 08/14 0351 104.0 08/14 0351 65 144/81 98 08/14 0346 64 98 08/14 0341 81 97 08/14 0336 99.0 08/14 0336 76 128/80 99 08/14 0331 74 99 08/14 0326 80 98 08/14 0321 99.0 08/14 0321 73 128/80 98 08/14 0316 78 98 08/14 0311 74 98 08/14 0306 103.0 08/14 0306 85 132/86 99 08/14 0301 73 98 08/14 0256 86 98 08/14 0251 104.0 08/14 0251 70 139/82 98 08/14 0246 70 98 08/14 0241 90 99 08/14 0236 105.0 08/14 0236 67 138/83 98 08/14 0231 77 98 08/14 0226 90 98 08/14 0221 98.0 08/14 0221 73 130/77 99 08/14 0216 91 98 08/14 0211 81 97 08/14 0206 99.0 08/14 0206 78 132/78 98 08/14 0201 79 97 08/14 0156 77 98 08/14 0151 103.0 08/14 0151 79 139/81 98 08/14 0146 70 98 08/14 0141 75 98 08/14 0136 37.1 15 08/14 0136 96.0 08/14 0136 73 126/76 98 08/14 0131 69 97 08/14 0126 68 98 08/14 0121 98.0 08/14 0121 68 129/77 99 08/14 0116 67 98 08/14 0111 86 98 08/14 0106 92.0 08/14 0106 86 123/74 99 08/14 0101 80 98 08/13 2356 80 99 08/13 2356 80 99 08/13 2351 37.5 15 08/13 2351 87.0 08/13 2351 87.0 08/13 2351 80 123/65 99 08/13 2351 80 123/65 99 08/13 2346 80 99 08/13 2346 80 99 08/13 2341 87 99 08/13 2341 87 99 08/13 2336 82.0 08/13 2336 82.0 08/13 2336 106 109/65 98 08/13 2336 106 109/65 98 08/13 2331 94 98 08/ 2331 94 98 08/13 2326 97 99 08/13 2326 97 99 08/13 2321 80.0 08/13 2321 80.0 08/ 2321 90 108/61 99 08/13 2321 90 108/61 99 08/ 2316 144 99 08/ 2316 144 99 08/ 2311 116 99 08/ 2311 116 99 08/ 2306 81.0 08/ 2306 81.0 08/13 2306 37.9 142 114/65 99 08/13 2306 37.9 142 114/65 99 08/13 2301 127 99 08/ 2301 127 99 08/13 2256 90 100 08/ 2251 84.0 08/ 2251 120 118/59 99 08/ 2246 121 99 08/ 2241 80 99 08/ 2236 75.0 / 2236 92 105/57 99 08/13 2231 97 99 08/ 2226 100 99 08/13 2221 72.0 08/ 2221 86 100/56 100 08/13 2216 70 98 08/13 2211 96 99 08/13 2207 72.0 08/13 2207 146 97/50 08/13 2206 145 99 08/13 2201 133 98 08/13 2156 103 99 08/13 2152 69.0 08/ 2152 106 99/48 08/ 2151 109 99 08/ 2146 147 99 08/ 2141 136 99 08/ 2137 37.1 15 08/ 2137 118.0 08/ 2137 179 169/87 08/ 2136 152 100 08/ 2035 94.0 08/ 2035 92 121/76 08/13 2032 69 100 08/13 8 71 100 08/13 2022 87 100 08/13 2021 91.0 08/13 2021 113 126/70 08/13 2017 114 100 08/13 2012 92 100 08/13 2010 75 89 08/13 2008 103 99 08/13 2005 107.0 08/13 2005 81 144/80 08/13 2003 67 99 08/13 1958 70 99 08/13 1957 118.0 08/13 1957 64 158/88 08/13 1953 76 98 08/13 1951 123.0 08/13 1951 36.7 63 170/89 08/13 1948 68 100 08/13 1943 73 100 08/13 1938 70 100 08/13 1936 95.0 08/13 1936 58 134/66 08/13 1933 58 100 08/13 1928 57 100 08/13 1923 59 100 08/13 1921 85.0 08/13 1921 63 114/66 08/13 1918 67 100 08/13 1913 72 100 08/13 1908 82 100 08/13 1905 95.0 08/13 1905 75 128/72 08/13 1904 73 90 08/13 1903 72 96 08/13 1858 82 98 08/13 1853 85 97 08/13 1851 95.0 08/13 1851 78 131/76 08/13 1848 88 97 08/13 1843 87 98 08/13 1838 82 98 08/13 1836 96.0 08/13 1836 69 136/72 08/13 1833 78 98 08/13 1828 75 99 08/13 1823 71 98 08/13 1821 110.0 08/13 1821 67 140/88 08/13 1818 66 98 08/13 1813 62 98 08/13 1808 61 98 08/13 1807 110.0 08/13 1807 56 150/85 08/13 1803 77 96 08/13 1658 54 98 08/13 1653 60 98 08/13 1651 91.0 08/13 1651 60 139/63 08/13 1648 57 98 08/13 1643 58 96 08/13 1638 59 97 08/13 1635 101.0 08/13 1635 60 138/75 08/13 1633 59 97 08/13 1628 66 97 03/16 1623 62 97 03/16 1620 106.0 03/16 1620 57 145/79 03/16 1618 60 97 03/16 1613 65 98 03/16 1608 69 98 03/16 1606 109.0 03/16 1606 65 155/76 03/16 1603 69 97 Patient Weight Weight (lb): 137 Weight (oz): Weight (kg): 62.142 Physical Exam Cardiac: normal sinus rhythm Lungs: clear to auscultation Neuro: Exam: alert, oriented x3, normal speech Abdomen: soft, no abnormal tenderness, no guardi ng, no rebound tenderness, normoactive bowel sounds Incision site: well approximated edges, dry, no drainage, no inflammation Uterus: non-tender Fundus: non-tender Lochia: normal Lacerations: Perineal laceration(s): None Episiotomy or laceration: none Vulva/Perineum: normal, no hematoma CVA tenderness: none Lower extremities: Edema: trace Result Findings/Data: Laboratory Tests: 03/17 03/16 0600 2122 Blood Gas Cord Blood pH (7.20 - 7.30) 7.23 Cord Blood PCO2 (45 - 50 MMHG) 56 H Cord Blood PO2 (15 - 25 mmHg) 12 L Cord Blood HCO3 (15 - 25 mmol/L) 24 Cord Base Excess (-5 - 5 mmol/L) -4.0 Cord O2 Saturation (25 - 45 %) 10 L Chemistry Sodium (134 - 147 mEq/L) 138 Potassium (3.4 - 5.0 mEq/L) 4.0 Chloride (100 - 108 mEq/L) 106 Carbon Dioxide (21 - 33 mEq/L) 25 Anion Gap (0 - 20) 11 BUN (7 - 18 mg/dL) 11 Creatinine (0.6 - 1.3 mg/dL) 0.8 Glomerular Filtr Rate (110 - 120) 92.4 L Glucose (70 - 110 mg/dL) 67 L Calcium (8.0 - 10.5 mg/dL) 7.7 L Total Bilirubin (0.0 - 1.0 mg/dL) 0.30 AST (15 - 37 IUnit/L) 25 ALT (15 - 65 IUnit/L) 12 L Total Alk Phosphatase (30 - 165 IUnit/L) 107 Total Protein (6.4 - 8.2 g/dL) 4.4 L Albumin (3.4 - 5.0 g/dL) 1.90 L Hematology WBC (4.5 - 11.0 x10 3/uL) 15.05 H RBC (3.54 - 5.02 x10 6/uL) 2.65 L Hgb (11.0 - 15.0 g/dL) 8.7 L Hct (33.0 - 45.0 %) 24.9 L MCV (81.0 - 99.0 fL) 94.0 MCH (27.0 - 33.0 pg) 32.8 MCHC (33.0 - 37.0 g/dL) 34.9 RDW (11.5 - 14.5 %) 13.1 Plt Count (150 - 400 x10 3/uL) 131 L MPV (7.0 - 9.0 fL) 9.0 Neut % (Auto) (56.0 - 77.0 %) 80.4 H Lymph % (Auto) (14.0 - 32.0 %) 13.6 L Livingston % (Auto) (4.8 - 9.0 %) 5.0 Eos % (Auto) (0.3 - 3.7 %) 0.1 L Baso % (Auto) (0.0 - 2.0 %) 0.2 Neut # (Auto) (2.0 - 7.6 x10 3/uL) 12.09 H Lymph # (Auto) (1.0 - 3.8 x10 3/uL) 2.05 Livingston # (Auto) (0.1 - 0.8 x10 3/uL) 0.76 Eos # (Auto) (0.0 - 0.2 x10 3/uL) 0.01 Baso # (Auto) (0.0 - 0.2 x10 3/uL) 0.03 Abs Immat Gran (auto) (0.00 - 0.03 x10 3/uL) 0. 11 H Add Manual Diff NO Immature Gran % (0.0 - 2.0 %) 0.7 Nucleated RBC % (0 - 0 %) 0.0 Nucleated RBCs # (Man) (0.0 - 0.1 x10 3/uL) 0.0 0 Diagnosis, Assessment Plan Diagnosis, Assessment Plan Assessment: nml progress, anemia r/t: (acute blood loss) Plan: routine care Plan discussed with: patient, nurse at 1210 RPT #:[id number] END OF REPORT 2019-03-16 22:31:00-00:00 [facility] ([facility]) Post Anesthesia Evaluation REPORT#:[id number] REPORT STATUS: Signed DATE:03/16/19 TIME: 2230 PATIENT: ADA CALIX UNIT #: [id number] ROOM/BED: [place] [id number] : 99 AGE: 18 SEX: F ATTEND: Salomon Castellanos MD ADM AUTHOR: Dom Philip * ALL edits or amendments must be made on the [employer] document * Post Anesthesia Evaluation Anes. changes from pre-op eval Level of consciousness: patient awake Vital signs: Last Documented: Result Date Time Pulse Ox 99 03/16 2156 Pulse 103 03/16 2156 B/P Mean 69.0 03/16 2152 B/P 99/48 03/16 2152 Temp 36.7 03/16 195 Resp 20 03/16 1054 Respiratory/Airway: respiratory system stable Pain: adequately controlled Hydration: adequate Presence of N/V: no Anesthesia complications: no at 2232 RPT #:[id number] END OF REPORT 2019-03-16 21:49:00-00:00 [id number] [address] PATIENT NAME: ADA CALIX ADMIT DATE: 03/15/19 ACCOUNT NO: [id number] ROOM NO: [facility] AGE: 18 REPORT TYPE: OPERATIVE REPORT SEX: F ADMITTING PHYSICIAN:Salma Castellanos MD ATTENDING PHYSICIAN:Salma Castellanos MD OPERATION DATE: 03/16/2019 START TIME: 9 p.m. PROCEDURE PERFORMED: Primary low transverse cesa rean section. SURGEON: Salma Castellanos MD DOCUMENT CONTROL ASSOCIATE: Tim Husain, licensed surgical supplies sterilizer. PREOPERATIVE DIAGNOSES: Single intrauterine preg kerline at 40+1 weeks' gestational age with: 1. Arrest of descent. 2. Nonreassuring heart tracing. POSTOPERATIVE DIAGNOSES: Single intrauterine pre gnancy at 40+1 weeks' gestational age with: 1. Arrest of descent. 2. Nonreassuring heart tracing. ANESTHESIA: Epidural anesthesia. ESTIMATED BLOOD LOSS: 800 mL INTRAVENOUS FLUIDS: 1200 mL URINE OUTPUT: 350 mL SPECIMENS REMOVED: Cord, placenta, and membranes . FINDINGS: Viable male weighing 3160 gm, Apgars 8 and 9, delivered atraumatically from cephalic presentation. Tubes and ovaries grossly within normal limits bilaterally. PROCEDURE IN DETAIL: The pat ient was taken to the operating room where combined spinal epidural was applied and found to be adeq uate. The patient was then prepped and draped in normal sterile fashion, placed in dorsal supine position. Pfannenstiel skin incision was then made with a scalpel. Incision was then carried down to the underlyi ng layer of fascia with the scalpel. The fascia was then incised in midline. Incision was ex tended laterally bluntly. The superior aspect of this fascial incis ion was then grasped with 2 Sil clamps, elevated, tented up, and the rectus muscle dissected with the Josue scissors. Rectus muscles were in the midline. Peritoneu m was identified, entered PATIENT NAME: ADA CALIX 980 digitally bluntly, inferiorly and supe riorly bluntly. The Miguel retractor was then inserted. The lower uterine s egment was identified and entered sharply with the knife. Incision was ext ended laterally bluntly. was then delivered atraumatically. Nose and mouth were suctioned with the bulb suction. Nuchal cord reduced. Cord was clamped and cut. Infant handed off to the waiting pediatricians. Cord bl ood obtained. Placenta was then delivered with assistan ce. The uterus was then exteriorized and cleared of all clot and debris. The uterine incisio n was then repaired with Monocryl in a running interlocking fashion in 2 layers with go od hemostasis noted. The gutters and cul-de-sac were then cleared of all clot and debris. Uterus was returned to the abdomen. Int erceed placed anterior to the lower uterine segment incision. Miguel retractor was then removed. The rectus muscles were approximated in the midline with 0 Vicryl mattress stitch technique. Fascia was approximated with 0 Vicryl i n a running nonlocked fashion. Skin was closed with 4-0 Monocryl subcuticular closure. The patient t olerated the procedure well. Sponge, lap, needles, and instrument count were correct x2. The patient was taken to recovery room, awake and in stable cond ition. Dictated By: Salma Castellanos MD WT: OP:RIYA/CJ/SOCO Conf#: [id number]/DID#: [id number] Authenticated by Salma Castellanos MD On 03/05 08:16:37 PM Electronically Signed by Salma Castellanos MD o n 04/01/19 at 2016 PATIENT NAME: ADA CALIX [facility] 2019-03-16 21:32:00-00:00 [facility] OB Delivery Note REPORT#:[id number] REPORT STATUS: Signed DATE:03/16/19 TIME: 2131 PATIENT: ADA CALIX UNIT #: [id number] ROOM/BED: [place] [id number] : 99 AGE: 18 SEX: F ATTEND: Salomon Castellanos MD ADM AUTHOR: Salma Castellanos MD * ALL edits or amendments must be made on the el [employer]/computer document * OB Delivery Nursing Documentation Review Nursing data: The data set between the solid lines has been im ported from nursing documentation. Any exceptions have been noted be low under Provider comments. _ ROM date: ROM time: Membranes rupture method: AROM Amniotic fluid color: Clear Amniotic fluid amount: EGA (weeks/days): 40.0 EGA at admit (weeks): EGA at delivery (weeks): 40 Pre-delivery GBS status: GBS status: positive Prophylaxis administered: ampicillin evaluation at delivery: insulation installer Admission EGA (wks/days): 40 weeks EGA at delivery (wks/days): 40 weeks General VS: Last Documented: Result Date Time B/P Mean 94.0 03/16 2035 B/P 121/76 03/16 2035 Pulse 92 03/16 2035 Pulse Ox 100 03/16 2033 Temp 36.7 03/16 1951 Resp 20 03/16 105 Membranes: AROM ROM date: 03/16/19 Amniotic fluid: clear Baby A Information Baby A information Delivery date: 03/16/19 Delivery time: 2102 status: live born Wt of baby (grams): 3160 Gender: male 1 minute: 8 5 minutes: 9 Presentation: vertex ABG details Baby A Cord blood gases: not collected Nuchal cord Baby A Nuchal cord: yes (loose and reduced) Delivery section Abdominal incision: Pfannenstiel Primary indication: elective repeat Priority: indicated (add on) Antibiotic prior to incision: 1 dose )(SCDs applied activated: Yes Incision: low transverse Hemorrhage: no Consent: indication discussed, questions answer ed, pt consent to op delivery Mother's condition: mother stable 's condition: infant stable in room Op/Inv Proc Note - Brief )(Start date: 03/16/19 )(Start time: 2058 )( Procedure(s) performed: prim low transverse c /s )( Primary Surgeon: Dr Castellanos )( User Experience Team Lead(s): Tim Husain. LSA )( Pre-procedure diagnosis: SIUP @ 40+1 weeks GA with; 1. Arrest of descent 2. NRFHT )( Post-procedure diagnosis: Same )(Technique/Procedure: See op note Anesthesia: epidural anesthesia )( Estimated blood loss (ml): 800 )( Specimen removed/altered: Cord, placent and m embranes )( Complications: none Drain(s): Franks Tube(s): none Implant(s): none Fluids: 1200 Urine output: 350cc )( Finding(s): Viable male weighing 3160g apgars 8/9 de livered atraumatically from cephalic presentation. Tubes and ovaries grossly within normal limits bilaterally. Condition: stable Dictation number: [id number] at 2149 RPT #:[id number] END OF REPORT 2019-03-16 20:35:00-00:00 [facility] ([facility]) OB Admission / H P REPORT#:[id number] REPORT STATUS: Signed DATE:03/16/19 TIME: 2034 PATIENT: ADA CALIX UNIT #: [id number] ROOM/BED: [place] [id number] : 99 AGE: 18 SEX: F ATTEND: Salomon Castellanos MD ADM AUTHOR: Salma Castellanos MD * ALL edits or amendments must be made on the [employer] document * OB Admission H P Hx Allergies Coded Allergies: No Known Allergies (03/15/19) Objective General VS: Last Documented: Result Date Time Pulse Ox 99 03/16 1958 Pulse 70 03/16 1958 B/P Mean 118.0 03/16 1957 B/P 158/88 03/16 1957 Temp 36.7 03/16 1951 Resp 20 03/16 1054 Vital Signs Date Temp Pulse Resp B/P B/P Mean Pulse Ox FiO2 03/15-03/16 36.5-36.9 54-88 18-20 114-170/63-93 85.0-123.0 90-100 Patient Weight Weight (lb): 137 Weight (oz): Weight (kg): 62.142 Physical Exam HEENT: normocephalic w/o injury Breasts: deferred Neuro: Exam: alert, oriented x3, normal speech Abdomen: gravid, soft, no abnormal tenderness, n o guarding, no rebound tenderness, normoactive bowel sounds Uterine activity: Monitor: toco Frequency (description): regular Pelvic exam: Pelvis clinically adequate: yes, inlet appears appropriate, pubic bone config appropr, no midpelvic contraction Vulvar lesions: none, no evidence herpetic les, no evidence of other STD Vagina: normal, non-septated, w/o apparent lesi ons Cervical/ exam: Dilatation (cm): 6 Effacement (%): 80 station: - 3 presentation: cephalic Membranes: Membranes: AROM ROM date: 03/16/19 ROM time: 0940 Amniotic fluid: clear Odor: none Lower extremities: Edema: trace Baby A: Baby A baseline: 130 bpm Baby A variability: moderate 6-25 bpm Baby A accelerations: 15 X 15 Baby A decelerations: none Baby A FHR category: category 1 Diagnosis, Assessment Plan Diagnosis, Assessment Plan Free Text A P: 18 yr old P0 LMP: unk EDC: 03/15/19 @ 40+ 1 weeks GA dated by sono (per patient, awaiting records) presenting for scheduled IOL. She has no complaints at this time. Denies DAVIS, Blurry visi on, nausea, vomiting, abd pain, vaginal bleeding or LOF. +FM PNC complicated by: Hx of ASD. 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 - WILLIE WNL. SGA/IUGR @ 9%. on MFM sono. - Repeat sono 01/22/19-16% Anxiety disorder. GBS positive - for antibiotics intrapartum Delivery plan: >/= 39 weeks - Discussed (briefly-unofficial) with NICU Dr Joyner. States no pediactric uro. however with current status , fetus c an [facility] managed at [facility]. OBhx: Denies GynHx: 12/Irregular/ Denies fibroids, cyst, STD' s or abnormal paps MHx: Heart disease, Anxiety SurgHx: ASD closure, Corrective suregery for lef t leg afer accident. Family Hx: Anemia, HLD, Depression, Stroke, Live r disease, Breast and ovarian cancer SHx: Denies Alcohol, Cigarette and illicit drug Use Meds: PNV Allergy: NKDA Labs: T S: A pos Antibody: Neg HIV: Neg HbsAg: Neg Rubella: Immune RPR: NR GBS: pos. Imp: IUP @ 40+1 Weeks GA admitted for IOL. s/p cervidil x 1 AROM - Clear Plan: Admit to labor and delivery NPO EFM toco GBS ppx Pitocin augmentation at 204 RPT #:[id number] END OF REPORT 2019-03-16 20:17:00-00:00 [facility] ([facility]) Pain Management Consult Note REPORT#:[id number] REPORT STATUS: Signed DATE:03/16/19 TIME: 2016 PATIENT: ADA CALIX UNIT #: [id number] ROOM/BED: [place] [id number] : 99 AGE: 18 SEX: F ATTEND: Salomon Castellanos MD ADM AUTHOR: Dom Philip * ALL edits or amendments must be made on the [employer]/computer document * History of Present Illness Primary Care Physician: Fanny History Past History Allergies: Coded Allergies: No Known Allergies (03/15/19) Objective Physical Exam VS/I O: Last Documented: Result Date Time Pulse Ox 99 03/16 1958 Pulse 70 03/16 1958 B/P Mean 118.0 03/16 1957 B/P 158/88 03/16 1957 Temp 36.7 03/16 1951 Resp 20 03/16 1054 24 hour I O ending at 0700: 03/16 0700 03/15 1900 Intake Total 1200 Output Total Balance 1200 Intake, Other 1200 Patient 62.142 kg 60.781 kg Weight Patient Weight Weight (lb): 137 Weight (oz): Weight (kg): 62.142 Diagnosis, Assessment Plan Free text A P: Consulted by Dr. Castellanos f or post-op pain management on this patient scheduled for C/S. I have discussed wi th the patient the risks, benefits, and options and he/she wishes to proceed with the planned anesth etic. (x) Epidural placed for labor and subsequently u sed for . Will start epidural infusion post-operatively and will foll ow. The Anesthesiology department will follow. at 2018 RPT #:[id number] END OF REPORT 2019-03-15 15:20:00-00:00 [id number] [place] [id number] PATIENT NAME: ADA CALIX ADMIT DATE: ACCOUNT NO: [id number] ROOM NO: AGE: 18 REPORT TYPE: eELECTROCARDIOGRAM REPORT SEX: F ADMITTING PHYSICIAN:Salma Castellanos MD ATTENDING PHYSICIAN:Salma Castellanos MD Order: [id number] Test Reason : PRE OP Test Date/Time Stamp: FriMar 15 2019 15:20:11 Blood Pressure : / mmHG Vent. Rate : 070 BPM Atrial Rate : 070 BPM P-R Int : 146 ms QRS Dur : 072 ms QT Int : 392 ms P-R-T Axes : 032 058 041 degree s QTc Int : 423 ms Normal sinus rhythm Low voltage QRS Abnormal ECG PRE_OP Confirmed by ÁNGELA HADDAD, PAULO ([id number]) on 03/15/20 7:14:46 PM Referred By: Salma Castellanos Confirmed by:SIERRA MOTTA MD at [id number] PATIENT NAME: ADA CALIX 980
[2023-03-25 11:27] LABS: Specific Gravity 1.028 (1.005-1.030); Urine Bacteria >50 /HPF (<20); Urine Bilirubin NEGATIVE (Negative); Urine Blood 1+ (Negative); Urine Clarity Extremely Turbid (Clear); Urine Color Yellow (Yellow); Urine Glucose NEGATIVE (Negative); Urine Mucus 3+ /HPF (None Seen); Urine Protein TRACE (Negative); Urine Urobilinogen Normal (Normal); Urine pH 6.5 (5.0-7.0)
[2023-03-25 11:30] LABS: Bilirubin Total 0.7 mg/dL (0.2-1.0); Potassium 3.6 mEq/L (3.5-5.1); Protein, Total 7.9 g/dL (6.4-8.2)
[2023-03-25 11:41] LABS: SARS-CoV-2 Antigen Rapid Res Negative (Negative)
--- NOTE | 2023-03-25 11:47 | EDPHYS ---
Physician Documentation [facility] Name: Falguni Pringle Age: 22 yrs Sex: Female : 2000 Arrival Date: 03/25/2023 Time: 09:58 Bed 10 Private MD: ED Physician Vishnu Smith HPI: 03/25 11:26 This 22 yrs old Female presents to ER via Ambulatory with complaints of Passed sharan Out Prior To Arrival, Fever, Dizziness, Blurred Vision, Sore Throat. 11:26 The patient has experienced near-syncope. Onset: The symptoms/episode began/occurred 2 sharan day(s) ago. Duration: This was a single episode. Context: the episode(s) was witnessed, by family. Associated injury: The patient did not suffer any apparent associated injury. Associated signs and symptoms: Pertinent positives: dizziness, headache, lightheadedness, nausea. Current symptoms: Currently, the patient is not experiencing any symptoms, the patient feels back to baseline. The patient has experienced similar episodes in the past, a few times. 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 - Social history:: Smoking status: Patient denies any tobacco usage or history of. - Family history:: not pertinent. ROS: 11:28 Constitutional: Negative for fever, chills, and weight loss, Eyes: Negative for injury, sharan pain, redness, and discharge, Neck: Negative for injury, pain, and swelling, Cardiovascular: Negative for chest pain, palpitations, and edema, Respiratory: Negative for shortness of breath, cough, wheezing, and pleuritic chest pain, Abdomen/GI: Negative for abdominal pain, nausea, vomiting, diarrhea, and constipation, Back: Negative for injury and pain, : Negative for injury, bleeding, discharge, and swelling, MS/Extremity: Negative for injury and deformity, Skin: Negative for injury, rash, and discoloration, Neuro: Negative for headache, weakness, numbness, tingling, and seizure, Psych: Negative for depression, anxiety, suicide ideation, homicidal ideation, and hallucinations, Allergy/Immunology: Negative for hives, rash, and allergies, Endocrine: Negative for neck swelling, polydipsia, polyuria, polyphagia, and marked weight changes, Hematologic/Lymphatic: Negative for swollen nodes, abnormal bleeding, and unusual bruising. 11:28 ENT: Positive for sore throat. Exam: 11:28 Constitutional: This is a well developed, well nourished patient who is awake, alert, sharan and in no acute distress. Head/Face: Normocephalic, atraumatic. Eyes: Pupils equal round and reactive to light, extra-ocular motions intact. Lids and lashes normal. Conjunctiva and sclera are non-icteric and not injected. Cornea within normal limits. Periorbital areas with no swelling, redness, or edema. Neck: Trachea midline, no thyromegaly or masses palpated, and no cervical lymphadenopathy. Supple, full range of motion without nuchal rigidity, or vertebral point tenderness. No Meningismus. Chest/axilla: Normal chest wall appearance and motion. Nontender with no deformity. No lesions are appreciated. Cardiovascular: Regular rate and rhythm with a normal S1 and S2. No gallops, murmurs, or rubs. Normal PMI, no JVD. No pulse deficits. Respiratory: Lungs have equal breath sounds bilaterally, clear to auscultation and percussion. No rales, rhonchi or wheezes noted. No increased work of breathing, no retractions or nasal flaring. Abdomen/GI: Soft, non-tender, with normal bowel sounds. No distension or tympany. No guarding or rebound. No evidence of tenderness throughout. Back: No spinal tenderness. No costovertebral tenderness. Full range of motion. Skin: Warm, dry with normal turgor. Normal color with no rashes, no lesions, and no evidence of cellulitis. MS/ Extremity: Pulses equal, no cyanosis. Neurovascular intact. Full, normal range of motion. Neuro: Awake and alert, GCS 15, oriented to person, place, time, and situation. Cranial nerves II-XII grossly intact. Motor strength 5/5 in all extremities. Sensory grossly intact. Cerebellar exam normal. Normal gait. Psych: Awake, alert, with orientation to person, place and time. Behavior, mood, and affect are within normal limits. 11:28 ENT: Posterior pharynx: Airway: normal, no evidence of obstruction, Tonsils: with erythema, Uvula: normal, midline, non-edematous, no erythema, swelling, that is mild, erythema, that is mild. Vital Signs: 10:03 BP 119 / 78; Pulse 129; Resp 22; Temp 102.5(O); Pulse Ox 97% on R/A; Weight 54.43 kg rs5 (R); Height 5 ft. 0 in. ; Pain 8/10; 10:48 BP 110 / 70; Pulse 124; Resp 18; Pulse Ox 100% on R/A; tf2 13:14 BP 104 / 63; Pulse 92; Resp 16; Temp 98.9(O); Pulse Ox 100% ; aa5 10:03 Body Mass Index 23.44 (54.43 kg, 152.4 cm) rs5 10:03 Pain Scale: Adult rs5 Kalli Coma Score: 10:48 Eye Response: spontaneous(4). Motor Response: obeys commands(6). Verbal Response: tf2 oriented(5). Total: 15. MDM: 10:13 Patient medically screened. sharan 11:31 Differential Diagnosis: idiopathic syncope, , seizure. Data reviewed: vital sharan signs, nurses notes, lab test result(s). Consideration of Admission/Observation Escalation of care including admission/observation considered. I considered the following discharge prescriptions or medication management in the emergency department Medications were administered in the Emergency Department. See MAR. Test considered but Not performed: EKG: no ekg. Care significantly affected by the following chronic conditions: none , asd repair at 3 years old. Counseling: I had a detailed discussion with the patient and/or guardian regarding the historical points, exam findings, and any diagnostic results supporting the discharge/admit diagnosis, lab results, the need for outpatient follow up, for definitive care, a family practitioner. 03/25 10:13 Order name: CBC with Diff; Complete Time: 12:20 [facility] 03/25 10:13 Order name: Comprehensive Metabolic Panel; Complete Time: 11:42 [facility] 03/25 10:13 Order name: Urinalysis w/ reflexes; Complete Time: 11:42 [facility] 03/25 10:13 Order name: Flu; Complete Time: 11:42 [facility] 03/25 10:13 Order name: SARS RAPID; Complete Time: 11:42 [facility] 03/25 10:13 Order name: Strep; Complete Time: 11:42 sharan 03/25 11:07 Order name: Manual Differential; Complete Time: 12:20 EDMS Administered Medications: 10:47 Drug: NS 0.9% IV 1000 ml Route: IV; Rate: 1 bolus; Site: right antecubital; tf2 12:17 Follow up: Response: No adverse reaction; IV Status: Completed infusion tf2 10:47 Drug: Ibuprofen PO 600 mg Route: PO; tf2 12:17 Follow up: Response: No adverse reaction tf2 10:47 Drug: Acetaminophen PO 1000 mg Route: PO; tf2 12:17 Follow up: Response: No adverse reaction tf2 11:47 Drug: NS 0.9% IV 1000 ml Route: IV; Rate: 1 bolus; Site: right antecubital; tf2 13:14 Follow up: IV Status: Completed infusion; IV Intake: 1000ml aa5 11:47 Drug: Rocephin IV 1 grams Route: IV; Rate: per protocol; Site: right antecubital; tf2 12:17 Follow up: Response: No adverse reaction tf2 13:14 Follow up: IV Status: Completed infusion; IV Intake: 10ml aa5 12:16 Drug: Amoxicillin-Clavulanate PO 875 mg Route: PO; tf2 12:17 Follow up: Response: No adverse reaction tf2 12:16 Drug: Oseltamivir PO 75 mg Route: PO; tf2 12:17 Follow up: Response: No adverse reaction tf2 Disposition Summary: 03/25/23 11:46 Discharge Ordered Location: Home sharan Problem: new sharan Symptoms: have improved sharan Condition: Stable sharan Diagnosis - Streptococcal tonsillitis sharan - Streptococcal pharyngitis sharan - Influenza due to unidentified influenza virus with other respiratory manifestations sharan - flu B - Fever, unspecified sharan - Elevated white blood cell count, unspecified sharan - UTI/ Urinary tract infection, site not specified sharan Followup: sharan - With: Private Physician - When: 2 - 3 days - Reason: Recheck today's complaints, Continuance of care, Re-evaluation by your physician Discharge Instructions: - Discharge Summary Sheet sharan - Fever, Adult sharan - Influenza, Adult sharan - Sore Throat sharan - Strep Throat, Adult sharan - Urinary Tract Infection, Adult sharan - Strep Throat, Adult, Wryf-ur-Krex sharan - Urinary Tract Infection, Adult, Uuim-lo-Ixdw sharan - Upper Respiratory Infection, Adult, Yguw-co-Cpec [facility] - Influenza, Adult, Gdyi-um-Tdqc [facility] Forms: - Medication Reconciliation Form [facility] - Thank You Letter [facility] - Antibiotic Education [facility] - Prescription Opioid Use [facility] - Patient Portal Instructions [facility] - Leadership Thank You Letter [facility] Prescriptions: - ondansetron 4 mg Oral Tablet,disintegrating - take 1 tablet by ORAL route every 8 hours for 5 days; 20 tablet; Refills: 0, [facility] Product Selection Permitted - Augmentin 875-125 mg Oral Tablet - take 1 tablet by ORAL route every 12 hours for 10 days; 20 tablet; Refills: 0, [facility] Product Selection Permitted - Tamiflu 75 mg Oral Capsule - take 1 tablet by ORAL route every 12 hours for 5 days; 10 tablet; Refills: 0, [facility] Product Selection Permitted Signatures: Dispatcher [employer] Vishnu Ledbetter, Gomez Evans MD, cha, RN RN rs5 Rae Wong RN RN tf2 Jaci Merchant RN aa5
--- NOTE | 2023-03-25 11:47 | ER ---
Nurse's Notes [facility] Name: Falguni Pringle Age: 22 yrs Sex: Female : 2000 Arrival Date: 03/25/2023 Time: 09:58 Bed 10 Private MD: Diagnosis: Streptococcal tonsillitis;Streptococcal pharyngitis;Influenza due to unidentified influenza virus with other respiratory manifestations-flu B;Fever, unspecified;Elevated white blood cell count, unspecified;UTI/ Urinary tract infection, site not specified Presentation: 03/25 10:03 Chief complaint: Patient states: headache, fever for past 24 hours greater than 100 rs5 degrees. Pt experienced syncopal episode witnessed by family at 0900. Pt reports sore throat, dizziness, nausea. Coronavirus screen: fever. Ebola Screen: Patient denies travel to an Ebola-affected area in the 21 days before illness onset. Initial Sepsis Screen: Does the patient meet any 2 criteria? Temp <36.0*C (96.8*F)) or > 38.3*C (100.9*F). HR > 90 bpm. Yes Does the patient have a suspected source of infection? Yes:. Risk Assessment: Do you want to hurt yourself or someone else? Patient reports no desire to harm self or others. Onset of symptoms was March 24, 2023. 10:03 Method Of Arrival: Ambulatory rs5 10:03 Acuity: JACK 3 rs5 Triage Assessment: 13:15 General: Behavior is calm, cooperative, appropriate for age. 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 - Social history:: Smoking status: Patient denies any tobacco usage or history of. - Family history:: not pertinent. Screenin:48 [facility] ED Fall Risk Assessment (Adult) History of falling in the last 3 months, tf2 including since admission No falls in past 3 months (0 pts) Confusion or Disorientation No (0 pts) Intoxicated or Sedated No (0 pts) Impaired Gait No (0 pts) Mobility Assist Device Used No (0 pt) Altered Elimination No (0 pt) Score/Fall Risk Level 0 - 2 = Low Risk Oriented to surroundings, Maintained a safe environment, Educated pt \T\ family on fall prevention, incl call for assistance when getting out of bed. 10:48 Abuse screen: Denies threats or abuse. Denies injuries from another. Nutritional tf2 screening: No deficits noted. Tuberculosis screening: No symptoms or risk factors identified. Assessment: 10:48 General: Appears in no apparent distress. comfortable. tf2 10:48 Pain: Complains of pain in neck Pain does not radiate. Pain currently is 5 out of 10 on tf2 a pain scale. Quality of pain is described as aching, Pain began Is continuous. Neuro: No deficits noted. Cardiovascular: Rhythm is sinus tachycardia. Respiratory: Reports cough that is non-productive, Airway is patent Respiratory effort is unlabored. GI: No deficits noted. : Urine is cloudy, Reports burning with urination. EENT: No deficits noted. Musculoskeletal: Reports generalized body aches. 13:15 Reassessment: No changes from previously documented assessment. Patient and/or family aa5 updated on plan of care and expected duration. Pain level reassessed. Patient is alert, oriented x 3, equal unlabored respirations, skin warm/dry/pink. 13:15 Respiratory: Breath sounds are clear bilaterally. aa5 13:16 EENT: Throat is reddened. aa5 Vital Signs: 10:03 BP 119 / 78; Pulse 129; Resp 22; Temp 102.5(O); Pulse Ox 97% on R/A; Weight 54.43 kg rs5 (R); Height 5 ft. 0 in. ; Pain 8/10; 10:48 BP 110 / 70; Pulse 124; Resp 18; Pulse Ox 100% on R/A; tf2 13:14 BP 104 / 63; Pulse 92; Resp 16; Temp 98.9(O); Pulse Ox 100% ; aa5 10:03 Body Mass Index 23.44 (54.43 kg, 152.4 cm) rs5 10:03 Pain Scale: Adult rs5 Kalli Coma Score: 10:48 Eye Response: spontaneous(4). Motor Response: obeys commands(6). Verbal Response: tf2 oriented(5). Total: 15. ED Course: 09:59 Patient arrived in ED. rg4 10:04 Vishnu Smith MD is Attending Physician. sharan 10:08 Triage completed. rs5 10:16 Rae Wong, RN is Primary Nurse. tf2 10:47 Strep Sent. tf2 10:47 SARS RAPID Sent. tf2 10:47 Flu Sent. tf2 10:47 Urinalysis w/ reflexes Sent. tf2 10:47 Comprehensive Metabolic Panel Sent. tf2 10:47 CBC with Diff Sent. tf2 10:48 No apparent distress. Awaiting lab results. tf2 10:48 No provider procedures requiring assistance completed. Inserted saline lock: 20 gauge tf2 in left antecubital area, using aseptic technique. Blood collected. 10:48 Patient has correct armband on for positive identification. Bed in low position. Call tf2 light in reach. Side rails up X2. Adult w/ patient. Provided Education on: medications being given.. 13:16 IV discontinued, intact, bleeding controlled, No redness/swelling at site. Pressure aa5 dressing applied. 13:16 Patient n/a. aa5 Administered Medications: 10:47 Drug: NS 0.9% IV 1000 ml Route: IV; Rate: 1 bolus; Site: right antecubital; tf2 12:17 Follow up: Response: No adverse reaction; IV Status: Completed infusion tf2 10:47 Drug: Ibuprofen PO 600 mg Route: PO; tf2 12:17 Follow up: Response: No adverse reaction tf2 10:47 Drug: Acetaminophen PO 1000 mg Route: PO; tf2 12:17 Follow up: Response: No adverse reaction tf2 11:47 Drug: NS 0.9% IV 1000 ml Route: IV; Rate: 1 bolus; Site: right antecubital; tf2 13:14 Follow up: IV Status: Completed infusion; IV Intake: 1000ml aa5 11:47 Drug: Rocephin IV 1 grams Route: IV; Rate: per protocol; Site: right antecubital; tf2 12:17 Follow up: Response: No adverse reaction tf2 13:14 Follow up: IV Status: Completed infusion; IV Intake: 10ml aa5 12:16 Drug: Amoxicillin-Clavulanate PO 875 mg Route: PO; tf2 12:17 Follow up: Response: No adverse reaction tf2 12:16 Drug: Oseltamivir PO 75 mg Route: PO; tf2 12:17 Follow up: Response: No adverse reaction tf2 Medication: 10:48 VIS not applicable for this client. tf2 Intake: 13:14 IV: 1000ml; Total: 1000ml. aa5 13:14 IV: 10ml; Total: 1010ml. aa5 Outcome: 11:46 Discharge ordered by . sharan 13:15 Discharged to home ambulatory. aa5 13:15 Condition: stable 13:15 Discharge instructions given to patient, family, Instructed on discharge instructions, follow up and referral plans. medication usage, Demonstrated understanding of instructions, follow-up care, medications, Prescriptions given X 3. 13:16 Patient left the ED. aa5 Signatures: Vishnu Smith MD MD cha Calderon, Audri, RN RN aa5 Claudia Sanches rg4 Gomez Walker RN RN rs5 Rae Wong, ENID RN tf2 Corrections: (The following items were deleted from the chart) 10:12 10:03 Chief complaint: Patient states: Pt reports fever for past 24 hours greater than rs5 100 degrees. Pt experienced syncopal episode witnessed by family at 0900. Pt reports sore throat, dizziness, nausea. rs5 10:50 10:48 Pain: Complains of pain in right aspect of thyroid and left aspect of thyroid tf2 tf2 13:15 13:14 BP 104 / 63; Pulse 92bpm; Resp 16bpm; Pulse Ox 100%; aa5 aa5
[2023-03-25] MEDS ORDERED: CEFTRIAXONE 1000 MG/VIAL ONE (11:52)
[2023-03-25] MEDS ORDERED: AMOX/K CLAV 875 MG TAB ONE (12:07)
[2023-03-25] MEDS ORDERED: OSELTAMIVIR 75 MG CAP PO ONE (12:07)
[2023-03-25 12:10] LABS: Blood Morphology Comment NOTED (NOT SEEN); Platelet Estimate ADEQ; Stomatocytes 1+
[2023-03-25 13:25] VITALS: O2SAT 100
[2023-03-25 13:26] VITALS: BP 104/63; TEMP 98.9
== END 2023-03-25 13:16 | disposition home or self-care (01) ==
LOC: ER 09:58
DX: J10.1 Influenza due to other identified influenza virus with other respiratory manifestations (principal); J03.00 Acute streptococcal tonsillitis, unspecified; N39.0 Urinary tract infection, site not specified; D72.829 Elevated white blood cell count, unspecified; Z20.822 Contact with and (suspected) exposure to COVID-19
CPT/HCPCS: 36415; 80053; 81001; 85025; 87081; 87804; 87811; 96361; 96365; 99284; J0696; J7030

== ENCOUNTER 2024-04-28 20:09 | Emergency (ER) | payer OTHER ==
--- OUTSIDE RECORDS SUMMARY | 2024-04-28 20:13 | XMS REPORT | Continuity of Care Document ---
Author Name Unknown Address [address] [facility] [address] [place] [address] [facility] thconnect Address [address] [facility] [place] [address] Care Team Providers Care Profiler Operator Name Role Phone Salma Castellanos Attending Clinician Unavail able Doctor Unassigned, Adrian Attending Clinician U Bharathi Parker Admitting Clinician Unavailab le Payers Payer Name Policy Type Policy Number Effective Date Expirati on Date Source Problems Condition Name Condition Details Condition Category Status Onset Date Resolution Date Last Treatment Date Treating Clinician Comments Source Influenza vaccinatio n declined Influenza vaccinatio n declined Disease Active 2017-08 00:00: 00 [facility] Supervisio n of high risk , antepartum Supervisio n of high risk , antepartum Disease Active 2017-08 00:00: 00 [facility] Hypertrigl yceridemia Hypertrigl yceridemia Disease Active 03-26 00:00: 00 [facility] Allergies, Adverse Reactions, Alerts Allergy Name Allergy Type Status Severity Reaction(s) Onset Date Inactive Date Treating Clinician Comments Source No Known Allergie s DA Active U 03-15 00:00: 00 [facility] No Known Allergie s DA Active U 03-15 00:00: 00 [facility] Social History Social Habit Start Date Stop Date Quantity Comments Source ASSERTION 2018-05-14 00:00:00 [facility] Alcohol intake 2019-04-29 00:00:00 2019-04-29 00:00:00 0 /d [facility] Sex Assigned At 2000 00:00:00 2000 00:00:00 [facility] Smoking Status Start Date Stop Date Source Never smoker [facility] Medications Ordered Medication Name Filled Medication Name Start Date Stop Date Current Medication? Ordering Clinician Indication Dosage Frequency Signature (SIG) Comments Components Source multivitami n ( VITAMIN) tablet 2017-08 00:00: 00 Yes [id number] 1{tbl} Take 1 tablet by mouth daily. [facility] Procedures Procedure Date / Time Performed Performing Clinicia n Source EXTERNAL PROVIDER - ADC REFERRAL 2019-03-26 05:01:00 Doctor Unassigned, Adrian [facility] Encounters Start Date/Time End Date/Time Encounter Type Admission Type Attending Clinicians Care Facility Care Department Encounter ID Source 2024-04-08 10:37:36 2024-04-08 10:37:36 Outpatient [facility] [id number] Darrion Collado 2022-09-23 14:53:00 2022-09-23 14:53:00 Outpatient Salma Michaud [facility] OUTD [id number] 10 [facility] 2021-05-04 00:00:00 2021-05-04 00:00:00 Letter (Out) Doctor Unassigned, Adrian [facility] 1..114 350.1.13.10 4.2.7.2.686 [id number] [facility] 2019-03-26 00:00:00 2019-03-26 00:00:00 Orders Only Doctor Unassigned, Adrian [facility] 1.840.114 350.1.13.10 4.2.7.2.686 [id number] [facility] Results Test Description Test Time Test Comments Results Resul t Comments Source - US PELVIS COMPLETE 2022-09-24 00:00:00 [facility] : 2000 Sex: F Name: ADA CALIX [facility] : 2000 Age/S: 22 / F [address] [place] [address] Unit #: [id number] Loc: [place] [address] Phys: Salma Castellanos MD Acct: [id number] Dis Date: Status: DEP CLI PHONE #: [phone] Exam Date: 09/23/20221807 FAX #: [phone] Reason: AMENORRHEA. EXAMS: CPT CODE: [id number] US PELVIS COMPLETE 36531 PROCEDURE INFORMATION: Exam: US Pelvis Complete (Transabdominal), [...] CC: Salma Castellanos MD Technologist: Sarah Belcher Trnazb Date/Time: 09/24/2022 (2254) [email or web address] Orig Print D/T: S: 09/24/2022 (0774) Probe: PAGE 1 Signed Report - US TRANSVAGINAL NON OB 2022-09-24 00:00:00 [facility] : 2000 Sex: F Name: ADA CALIX [facility] : 2000 Age/S: 22 / F [address] [place] [address] Unit #: [id number] Loc: [facility] [place] [address] Phys: Salma Castellanos MD Acct: [id number] Dis Date: Status: DEP CLI PHONE #: [phone] Exam Date: 09/23/2022 180 FAX #: [phone] Reason: AMENORRHEA. EXAMS: CPT CODE: [id number] [place] [address] PROCEDURE INFORMATION: Exam: US Pelvis Complete (Transabdominal), [...] trace fluid in the endocervical canal. at 1028 Reported and signed by: Jasen Suresh M.D. CC: Salma Castellanos MD Technologist: Sarah Belcher Trnscb Date/Time: 09/24/2022 (8086) DonnyO Orig Print D/T: S: 09/24/2022 (0845) Probe: [id number] PAGE 1 Signed Report SURGICAL SPECIMENS 2019-03-19 08:38:00 --------RUN DATE: 03/19/19 [facility] *LIVE* PAGE 1 RUN TIME: 837 Specimen Inquiry RUN USER: INTERFACE --------PATIENT: ADA CALIX LOC: RADHA U #: [id number] AGE/SX: 18/ ROOM: [facility] RE03/15/19REG DR: Salma Castellanos MD : [birth year] BED: 1 DIS: STATUS: ADM IN TLOC: -------- SPEC #: [id number] RECD: 03/17/19 STATUS: DONNA REYES #: [id number] DELANEY: 03/17/[address] [facility] [address]: Salma Castellanos MD ENTERED: 03/18/19 SP TYPE: SURG SPEC OTHR DR: Mayito MOMIN,Bharathi Dickson MD: LEVEL 4 CODES: [id number] - PLACENTA, NOS COPIES TO: Salma Castellanos MD [address] [place] [address] [email or web address] Jose Ramon Edmond JR, MD [address] [id number] Bharathi Chaney DO [address] [place] [address] [address] [place] [address] PROCEDURES: LEVEL 4 (Incomplete) TISSUES: 1. PLACENTA, [...] CONTINUED ON NEXT PAGE --------RUN DATE: 03/19/19 [facility] *LIVE* PAGE 2 RUN TIME: 837 Specimen Inquiry RUN USER: INTERFACE --------SPEC #: [id number] PATIENT: ADA CALIX #[id number] (Continued) GROSS AND MICROSCOPIC (Continued) MICROSCOPIC EXAMINATION: [...] anomalies Signed SIGNATURE ON FILE Dom Mullen Camryn CHAHAL 03/19/19 0838 -------- END OF REPORT COMMENTS: POD #1 and #2[facility] METABOLIC [id number] 07:31:00* Test Item Value Reference Range Interpretation Comme nts SODIUM (test code = NA) 138 mEq/L 134-147 N POTASSIUM (test code = K) 4.0 mEq/L 3.4-5.0 N CHLORIDE (test code = CL) 106 mEq/L 100-108 N CARBON DIOXIDE (test code = CO2) 25 mEq/L 21-33 N ANION GAP (test code = GAP) 11 0-20 N GLUCOSE (test code = GLU) 67 mg/dL 70-110 L BLOOD UREA NITROGEN (test code = BUN) 11 mg/dL 7-18 N GLOMERULAR FILTRATION RATE (test code = GFR) 92.4 110-120 L Units of measure = ml/min/1.73 m2 CREATININE (test code = CREAT) 0.8 mg/dL 0.6-1.3 N TOTAL PROTEIN (test code = PROT) 4.4 g/dL 6.4-8.2 L ALBUMIN (test code = ALB) 1.90 g/dL 3.4-5.0 L CALCIUM (test code = CA) 7.7 mg/dL 8.0-10.5 L BILIRUBIN TOTAL (test code = BILT) 0.30 mg/dL 0.0-1.0 N SGOT/AST (test code = AST) 25 IUnit/L 15-37 N SGPT/ALT (test code = ALT) 12 IUnit/L 15-65 L ALKALINE PHOSPHATASE TOTAL (test code = ALKP) 107 IUnit/L 30-165 N COMMENTS: POD #1CBC W/AUTO [id number] 06:53:00* Test Item Value Reference Range Interpretation Comme nts WHITE BLOOD CELL (test code = WBC) 15.05 x10 3/uL 4.5-11.0 H RED BLOOD CELL (test code = RBC) 2.65 x10 6/uL 3.54-5.02 L HEMOGLOBIN (test code = HGB) 8.7 g/dL 11.0-15.0 L HEMATOCRIT (test code = HCT) 24.9 % 33.0-45.0 L MEAN CELL VOLUME (test code = MCV) 94.0 fL 81.0-99.0 N MEAN CELL HGB (test code = MCH) 32.8 pg 27.0-33.0 N MEAN CELL HGB CONCETRATION (test code = MCHC) 34.9 g/dL 33.0-37.0 N RED CELL DISTRIBUTION WIDTH CV (test code = RDW) 13.1 % 11.5-14.5 N RED CELL DISTRIBUTION WIDTH SD (test code = RDW-SD) 44.9 fL 37.0-54.0 N PLATELET COUNT (test code = PLT) 131 x10 3/uL 150-400 L MEAN PLATELET VOLUME (test code = MPV) 9.0 fL 7.0-9.0 N NEUTROPHIL % (test code = NT%) 80.4 % 56.0-77.0 H IMMATURE GRANULOCYTE % (test code = IG%) 0.7 % 0.0-2.0 N LYMPHOCYTE % (test code = LY%) 13.6 % 14.0-32.0 L MONOCYTE % (test code = MO%) 5.0 % 4.8-9.0 N EOSINOPHIL % (test code = EO%) 0.1 % 0.3-3.7 L BASOPHIL % (test code = BA%) 0.2 % 0.0-2.0 N NUCLEATED RBC % (test code = NRBC%) 0.0 % 0-0 N NEUTROPHIL # (test code = NT#) 12.09 x10 3/uL 2.0-7.6 H IMMATURE GRANULOCYTE # (test code = IG#) 0.11 x10 3/uL 0.00-0.03 H LYMPHOCYTE # (test code = LY#) 2.05 [...] = MDIFF) NO COMMENTS: POD #1 and #2CORD ARTERIAL BLOOD [id number] 21:24:00* Test Item Value Reference Range Interpretation Comme nts CORD BLOOD PH (test code = PH/C) 7.23 7.20-7.30 N CORD BLOOD PCO2 (test code = PCO2/C) 56 MMHG 45-50 H CORD BLOOD PO2 (test code = PO2/C) 12 mmHg 15-25 L CORD BLOOD HCO3 (test code = HCO3/C) 24 mmol/L 15-25 N BASE EXCESS CORD (test code = CHAVO/C) -4.0 mmol/L -5-5 N O2 SATURATION (test code = O2S/C) 10 % 25-45 L RAPID PLASMA [id number] 11:21:00* Test Item Value Reference Range Interpretation Comme nts RAPID PLASMA REAGIN (test co de = RPR) NONREACTIVE NONREACTIVE AG HEPATITIS B [id number] 11:21:00* Test Item Value Reference Range Interpretation Comme nts AG HEPATITIS B SURFACE (test code = HBSAG) NON REACTIVE INDEX NonReactive AB HIV 1 11:21:00* Test Item Value Reference Range Interpretation Comme nts AB HIV 1 2 (test code = [id number]) NONREACTIVE INDEX NONREACTIVE RAPID PLASMA [id number] 20:32:00* Test Item Value Reference Range Interpretation Comme nts RAPID PLASMA REAGIN (test code = RPR) NONREACTI VE AG HEPATITIS B [id number] 20:32:00* Test Item Value Reference Range Interpretation Comme nts AG HEPATITIS B SURFACE (test code = HBSAG) NON REACTIVE INDEX NonReactive AB HIV 1 20:32:00* Test Item Value Reference Range Interpretation Comme nts AB HIV 1 2 (test code = [id number]) NONREACTIVE INDEX NONREACTIVE RAPID PLASMA [id number] 15:21:00* Test Item Value Reference Range Interpretation Comme nts RAPID PLASMA REAGIN (test code = RPR) NONREACTI VE AG HEPATITIS B [id number] 15:21:00* Test Item Value Reference Range Interpretation Comme nts AG HEPATITIS B SURFACE (test code = HBSAG) NON REACTIVE INDEX NonReactive AB HIV 1 15:21:00* Test Item Value Reference Range Interpretation Comme nts AB HIV 1 2 (test code = JTC45OF) INDEX NONREACTIVE CBC W/AUTO [id number] 14:38:00* Test Item Value Reference Range Interpretation Comme nts WHITE BLOOD CELL (test code = WBC) 6.65 x10 3/uL 4.5-11.0 N RED BLOOD CELL (test code = RBC) 3.59 x10 6/uL 3.54-5.02 N HEMOGLOBIN (test code = HGB) 11.5 g/dL 11.0-15.0 N HEMATOCRIT (test code = HCT) 33.6 % 33.0-45.0 N MEAN CELL VOLUME (test code = MCV) 93.6 fL 81.0-99.0 N MEAN CELL HGB (test code = MCH) 32.0 pg 27.0-33.0 N MEAN CELL HGB CONCETRATION (test code = MCHC) 34.2 g/dL 33.0-37.0 N RED CELL DISTRIBUTION WIDTH CV (test code = RDW) 13.0 % 11.5-14.5 N RED CELL DISTRIBUTION WIDTH SD (test code = RDW-SD) 44.8 fL 37.0-54.0 N PLATELET COUNT (test code = PLT) 169 x10 3/uL 150-400 N MEAN PLATELET VOLUME (test c ode = MPV) 9.0 fL 7.0-9.0 N NEUTROPHIL % (test code = NT%) 68.3 % 56.0-77.0 N IMMATURE GRANULOCYTE % (test code = IG%) 0.9 % 0.0-2.0 N LYMPHOCYTE % (test code = LY%) 24.4 % 14.0-32.0 N MONOCYTE % (test code = MO%) 5.9 % 4.8-9.0 N EOSINOPHIL % (test code = EO%) 0.2 % 0.3-3.7 L BASOPHIL % (test code = BA%) 0.3 % 0.0-2.0 N NUCLEATED RBC % (test code = NRBC%) 0.0 % 0-0 N NEUTROPHIL # (test code = NT#) 4.55 x10 3/uL 2.0-7.6 N IMMATURE GRANULOCYTE # (test code = IG#) 0.06 x10 3/uL 0.00-0.03 H LYMPHOCYTE # (test code = LY#) 1.62 x10 3/uL 1.0-3.8 N MONOCYTE # (test code = MO#) 0.39 x10 3/uL 0.1-0.8 N EOSINOPHIL # (test code = EO#) 0.01 x10 3/uL 0.0-0.2 N BASOPHIL # (test code = BA#) 0.02 x10 3/uL 0.0-0.2 N NUCLEATED RBC # (test code = NRBC#) 0.00 x10 3/uL 0.0-0.1 N MANUAL DIFF REQUIRED (test c ode = MDIFF) NO - MRI ABDOMEN W/O [id number] 10:32:00FAX: Abdirahman Fay MD [phone] [place]: St: PRE FAX: Bharathi Chaney [phone] ----- Name: ADA CALIX [facility] : 2000 Age/S: 18/F [address] [place] [address] Unit #: [id number] Loc: [place] [address] Phys: Abdirahman Shelton MD Acct: [id number] Dis Date: Status: PRE CLI PHONE #: [phone] Exam Date: 11/20/2018 1319 FAX #: [phone] Reason: LEFT HYRDONEPHROSIS EXAMS: CPT CODE: [id number] MRI ABDOMEN W/O CON 85930 MRI WITHOUT IV CONTRAST 11/20/2018 AT 1117 HOURS. CLINICAL HISTORY: Left hydronephrosis by ultrasound. LMP: Not available at the time of dictation. REPORTED EGA: 23 weeks. COMPARISON STUDIES: None. ADMINISTERED CONTRAST: None. FINDINGS: Multiplanar SSFSET2, T1 GRE and 2D FIESTA sequences of [...] ultrasound. NEURAL AXIS: No acute intracranial finding. The midline structures are well formed. No hydrocephalus or mass occupying lesion. Grossly unremarkable spine with no signs of spinal dysraphism. CHEST: Symmetric lung volumes are visualized. No diaphragmatic hernia. The cardiac silhouette is not enlarged. The cardiac apex projects to the left. ABDOMEN: Normal abdominal situs. Normal appearing right kidney in theright retroperitoneum without focal lesion or hydronephrosis. The [...] A three-vessel umbilical cord is seen with normal cord insertion. OTHER FINDINGS: Anterior placenta with partial right wraparound. No placenta previa or retroplacental hemorrhage. The cervix is closed measuring 2.7 cm in length. MATERNAL ABDOMEN: Severe bilateral maternal hydronephrosis/hydroureter, presumably from distal extrinsic compression by the gravid uterus. Remaining solid organs show no gross focal abnormality. The maternal bladder is decompressed. No adnexal masses or free pelvic fluid. PAGE 1 Signed Report (CO NTINUED) FAX: Abdirahman Fay MD [phone] [place]: St: PRE FAX: Bharathi Chaney [phone] Name: ADA CALIX [facility] : 2000 Age/S: 18/F [address] [place] [address] Unit #: [id number] Loc: [place] [address] Phys: Abdirahman Shelton MD Acct: [id number] Dis Date: Status: PRE CLI PHONE #:[phone] Exam Date: 11/20/2018 1319 FAX #: [phone] Reason: LEFT HYRDONEPHROSIS EXAMS: CPTCODE: [id number] MRI ABDOMEN W/O CON 99793 (Continued) IMPRESSION: 1. Unremarkable right kidney with limited assessment of the left renal fossa by persistent movement and relatively decreased contrast resolution. 2. Indeterminate fluid distended structure in the left pelvis superolaterally tothe bladder corresponding to the area of reported abnormality by ultrasound. It is unclear [...] 4. Right anterior placenta, nonprevia without retroplacental hemorrhage. The cervix is closed. 5. No maternal adnexal masses. No free fluid. This case was reviewed with a second observer who agrees with the findings. SL: ER-H at 1032 Reported and signed by: Lj Aguilar M.D. CC: Abdirahman Shelton MD; Bharathi Chaney DO Technologist:RT James(Chanel)(MR) Trnscrd Date/Time/By: 11/23/2018 (1032) : By: [email or web address] Orig Print D/T: S: 11/23/2018 (1036) PAGE 2 Signed Report Notes Date/Time Note Provider Source 2019-03-19 11:15:00 [facility] ([facility]) OB Disch REPORT#:[id number] REPORT STATUS: Signed DATE:03/19/19 TIME: 1115 PATIENT: ADA CALIX UNIT #: [id number] ROOM/BED: [place] [address] : [birth year] AGE: 18 SEX: F ATTEND: Salma Castellanos MD ADM AUTHOR: Salma Castellanos MD * ALL edits or amendments must be made on the electronic/computer document * Subjective Subjective Admission EGA (wks/days): 40 weeks EGA at delivery (wks/days): 40 weeks Objective General VS: Vital Signs Date Temp Pulse Resp B/P B/P Mean Pulse Ox FiO2 03/18-03/19 36.7-36.9 88-95 16-18 116-124/63-76 Last Documented: Result Date Time B/P 123/76 03/19 0743 Temp 36.9 03/19 0743 Pulse 92 03/19 0743 Resp 16 03/19 0743 B/P Mean 106.0 08/14 0806 Pulse Ox 99 03/17 0756 Patient Weight Weight (lb): 137 Weight (oz): Weight (kg): 62.142 Physical Exam Cardiac: normal rhythm, no clinically sig murmur, no gallops, no rubs Lungs: clear to auscultation, no rales, no rhonchi Neuro: Exam: alert, oriented x3, normal speech Abdomen: post gravid, soft, no abnormal tenderness, no guarding, no rebound tenderness, normoactive bowel [...] % (Auto) (14.0 - 32.0 %) 16.5 Mcdowell % (Auto) (4.8 - 9.0 %) 4.7 L Eos % (Auto) (0.3 - 3.7 %) 0.3 Baso % (Auto) (0.0 - 2.0 %) 0.2 Neut # (Auto) (2.0 - 7.6 x10 3/uL) 9.18 H Lymph # (Auto) (1.0 - 3.8 x10 3/uL) 1.95 Mcdowell # (Auto) (0.1 - 0.8 x10 3/uL) 0.55 Eos # (Auto) (0.0 - 0.2 x10 3/uL) 0.03 Baso # (Auto) (0.0 - 0.2 x10 3/uL) 0.02 Abs Immat Gran (auto) (0.00 - 0.03 x10 3/uL) 0.06 H Add Manual Diff NO Immature Gran % (0.0 - 2.0 %) 0.5 Nucleated RBC % (0 - 0 %) 0.0 Nucleated RBCs # (Man) (0.0 - 0.1 x10 3/uL) 0.00 Discharge Summary Discharge Summary Date of admission: Date of admission: 03/15/19 Hospital course: induction of labor, primary LTCS in labor (for FHR abnormalities), nml postop/postpart care, vulva edema Baby A: status: live born Gender: male 1 minute: 8 5 minutes: 9 Plan: routine care, discharge today, ice pack to perineum Instructions: routine instr sheet given, instr and warnings rev'd, specific instr as noted Diet: regular Activity and restrictions: up ad marco, may shower, pelvic rest, no intercourse for 6 wks, no driving Contraception discussed: abstinence for 4-6 weeks, will discuss at PP visit Discharge meds: Continue taking these medications: PNV/FE FUM/FA ( MULTIVITAMIN) 1 TAB TAB 1 TABLET ORAL DAILY. FERROUS SULFATE (FEOSOL) 325 MG TAB 325 MILLIGRAM ORAL DAILY. Start taking the following new medications: IBUPROFEN (MOTRIN) 800 MG TAB 800 MILLIGRAM ORAL EVERY 8 HR NEEDED. as needed for ABDOMINAL CRAMPS Qty = 45 No Refills ACETAMINOPHEN/CODEINE (TYLENOL WITH CODEINE #3 300/30 MG) 1 TAB TAB 1 TABLET ORAL EVERY 6 HOURS NEEDED. as needed for ABDOMINAL CRAMPS Qty = 28 No Refills Prescriptions: on chart Discharge condition: stable Discharge to: home Follow up in: 3 weeks at 1119 RPT #:[id number] END OF REPORT [facility] 2019-03-18 12:36:00 [facility] ([facility]) OB Postpart Progr Note REPORT#:[id number] REPORT STATUS: Signed DATE:03/18/19 TIME: 1236 PATIENT: ADA CALIX UNIT #: [id number] ROOM/BED: [place] [address] : [birth year] AGE: 18 SEX: F ATTEND: Salma Castellanos MD ADM AUTHOR: Salma Castellanos MD * ALL edits or amendments must be made on the electronic/computer document * Subjective Subjective EGA weeks/days: 40 weeks Status/Day: post , post operative (day 2) Objective General VS: Vital Signs: Date Time Temp Pulse Resp B/P B/P Pulse O2 O2 Flow FiO2 Mean Ox Delivery Rate 03/18 0800 36.7 77 16 137/79 03/17 1518 37.2 87 17 127/70 Patient Weight Weight (lb): 137 Weight (oz): Weight (kg): 62.142 Physical Exam Cardiac: normal sinus rhythm Lungs: clear to auscultation Neuro: Exam: alert, oriented x3, normal speech Abdomen: soft, no abnormal tenderness, no guarding, no rebound tenderness, normoactive bowel [...] % (Auto) (14.0 - 32.0 %) 16.5 Mcdowell % (Auto) (4.8 - 9.0 %) 4.7 L Eos % (Auto) (0.3 - 3.7 %) 0.3 Baso % (Auto) (0.0 - 2.0 %) 0.2 Neut # (Auto) (2.0 - 7.6 x10 3/uL) 9.18 H Lymph # (Auto) (1.0 - 3.8 x10 3/uL) 1.95 Mcdowell # (Auto) (0.1 - 0.8 x10 3/uL) 0.55 Eos # (Auto) (0.0 - 0.2 x10 3/uL) 0.03 Baso # (Auto) (0.0 - 0.2 x10 3/uL) 0.02 Abs Immat Gran (auto) (0.00 - 0.03 x10 3/uL) 0.06 H Add Manual Diff NO Immature Gran % (0.0 - 2.0 %) 0.5 Nucleated RBC % (0 - 0 %) 0.0 Nucleated RBCs # (Man) (0.0 - 0.1 x10 3/uL) 0.00 Diagnosis, Assessment Plan Diagnosis, Assessment Plan Assessment: nml progress, anemia r/t: (acute blood loss) Plan: routine care, discharge tomorrow Consultation(s): Consultation: anesthesia Plan discussed with: patient, nurse at 1237 RPT #:[id number] END OF REPORT [facility] 2019-03-17 15:23:00 [facility] ([facility]) Pain Management Progress Note REPORT#:[id number] REPORT STATUS: Signed DATE:03/17/19 TIME: 1522 PATIENT: ADA CALIX UNIT #: [id number] ROOM/BED: [place] [address] : [birth year] AGE: 18 SEX: F ATTEND: Salma Castellanos MD ADM AUTHOR: Yonis Hinkle MD * ALL edits or amendments must be made on the electronic/computer document * Diagnosis, Assessment Plan Free text A P: Pain Management Rounds: Patient seen and examined Epidural in place and working well No side effects noted Epidural d/c today per request at 1523 RPT #:[id number] END OF REPORT [facility] 2019-03-17 12:03:00 [facility] ([facility]) OB Postpart Progr Note REPORT#:[id number] REPORT STATUS: Signed DATE:03/17/19 TIME: 1203 PATIENT: ADA CALIX UNIT #: [id number] ROOM/BED: [place] [address] : [birth year] AGE: 18 SEX: F ATTEND: Salma Castellanos MD ADM AUTHOR: Salma Castellanos MD * ALL edits or amendments must be made on the electronic/computer document * Subjective Subjective EGA weeks/days: 40 weeks Status/Day: post Objective General VS: Vital Signs: Date Time Temp Pulse Resp B/P B/P Pulse O2 O2 Flow FiO2 Mean Ox Delivery Rate 03/17 0806 37.0 03/17 0806 106.0 03/17 0806 72 137/84 03/17 0756 80 99 03/17 0755 90 86 03/17 0753 110.0 03/17 0753 76 148/83 03/17 0751 78 98 03/17 0746 80 98 03/17 0741 77 99 03/17 0736 100.0 03/17 0736 85 141/77 98 / 0731 81 98 03/17 0726 89 98 03/17 0721 102.0 03/17 0721 100 148/74 98 03/17 0716 79 99 08/ 0711 77 98 / 0706 106.0 / 0706 61 140/83 99 / 0701 63 98 03/17 0656 62 98 03/17 0651 109.0 03/17 0651 59 144/84 99 03/17 0646 77 99 03/17 0641 83 98 08/14 0637 103.0 08/14 [...] 106 109/65 98 08/13 2331 94 98 08/13 2331 94 98 08/13 2326 97 99 08/13 2326 97 99 08/13 2321 80.0 08/13 2321 80.0 08/13 2321 90 108/61 99 08/13 2321 90 108/61 99 08/13 2316 144 99 08/13 2316 144 99 08/13 2311 116 99 08/13 2311 116 99 08/13 2306 81.0 08/13 2306 81.0 08/13 2306 37.9 142 114/65 99 08/13 2306 37.9 142 114/65 99 08/13 2301 127 99 08/13 2301 127 99 08/13 2256 90 100 08/13 2251 84.0 08/13 2251 120 118/59 99 08/13 2246 121 99 08/13 2241 80 99 08/13 2236 75.0 08/13 2236 92 105/57 99 08/13 2231 97 99 08/13 2226 100 99 08/13 2221 72.0 08/13 2221 86 100/56 100 08/13 2216 70 98 08/13 2211 96 99 08/13 2207 72.0 08/13 2207 146 97/50 08/13 2206 145 99 08/13 2201 133 98 08/13 2156 103 99 08/13 2152 69.0 08/ 2152 106 99/48 / 2151 109 99 / 2146 147 99 / 2141 136 99 08/ 2137 37.1 15 08/ 2137 118.0 08/ 2137 179 169/87 / 2136 152 100 08/13 2035 94.0 / 2035 92 121/76 08/ 2033 69 100 08/13 2028 71 100 08/13 2023 87 100 08/13 2022 91.0 08/2 113 126/70 08/13 2018 114 100 08/13 2013 92 100 08/13 2010 75 89 08/13 2008 103 99 08/13 2005 107.0 08/ 2005 81 144/80 08/13 2003 67 99 [...] 08/13 1905 95.0 08/13 1905 75 128/72 / 1904 73 90 / 1903 72 96 / 1858 82 98 / 1853 85 97 / 1851 95.0 / 1851 78 131/76 08/ 1848 88 97 / 1843 87 98 / 1838 82 98 / 1836 96.0 / 1836 69 136/72 / 1833 78 98 / 1828 75 99 / 1823 71 98 / 1821 110.0 / 1821 67 140/88 / 1818 66 98 / 1813 62 98 / 1808 61 98 / 1807 110.0 / 1807 56 150/85 03/16 1803 77 96 03/16 1658 54 98 / 1653 60 98 / 1651 91.0 03/16 1651 60 139/63 08/ 1648 57 98 / 1643 58 96 03/16 1638 59 97 03/16 1635 101.0 03/16 1635 60 138/75 / 1633 59 97 / 1628 66 97 / 1623 62 97 / 1620 106.0 03/16 1620 57 145/79 03/16 1618 60 97 03/16 1613 65 98 03/16 1608 69 98 / 1606 109.0 03/16 1606 65 155/76 03/16 1603 69 97 Patient Weight Weight (lb): 137 Weight (oz): Weight (kg): 62.142 Physical Exam Cardiac: normal sinus rhythm Lungs: clear to auscultation Neuro: Exam: alert, oriented x3, normal speech Abdomen: soft, no abnormal tenderness, no guarding, no rebound tenderness, normoactive bowel [...] (Auto) (14.0 - 32.0 %) 13.6 L Mcdowell % (Auto) (4.8 - 9.0 %) 5.0 Eos % (Auto) (0.3 - 3.7 %) 0.1 L Baso % (Auto) (0.0 - 2.0 %) 0.2 Neut # (Auto) (2.0 - 7.6 x10 3/uL) 12.09 H Lymph # (Auto) (1.0 - 3.8 x10 3/uL) 2.05 Mcdowell # (Auto) (0.1 - 0.8 x10 3/uL) 0.76 Eos # (Auto) (0.0 - 0.2 x10 3/uL) 0.01 Baso # (Auto) (0.0 - 0.2 x10 3/uL) 0.03 Abs Immat Gran (auto) (0.00 - 0.03 x10 3/uL) 0.11 H Add Manual Diff NO Immature Gran % (0.0 - 2.0 %) 0.7 Nucleated RBC % (0 - 0 %) 0.0 Nucleated RBCs # (Man) (0.0 - 0.1 x10 3/uL) 0.00 Diagnosis, Assessment Plan Diagnosis, Assessment Plan Assessment: nml progress, anemia r/t: (acute blood loss) Plan: routine care Plan discussed with: patient, nurse at 1210 RPT #:[id number] END OF REPORT [facility] 2019-03-16 22:31:00 [facility]) Post Anesthesia Evaluation REPORT#:[id number] REPORT STATUS: Signed DATE:03/16/19 TIME: 2230 PATIENT: ADA CALIX UNIT #: [id number] ROOM/BED: [place] [address] : 99 AGE: 18 SEX: F ATTEND: Salma Castellanos MD ADM AUTHOR: Dom Philip MD * ALL edits or amendments must be made on the electronic/computer document * Post Anesthesia Evaluation Anes. changes from pre-op eval Level of consciousness: patient awake Vital signs: Last Documented: Result Date Time Pulse Ox 99 03/16 2156 Pulse 103 03/16 2156 B/P Mean 69.0 03/16 215 B/P 99/48 03/16 2152 Temp 36.7 03/16 1951 Resp 20 03/16 1054 Respiratory/Airway: respiratory system stable Pain: adequately controlled Hydration: adequate Presence of N/V: no Anesthesia complications: no at 2232 [facility] #:[id number] END OF REPORT [facility] 2019-03-16 21:49:00 [id number] [place] [address] PATIENT NAME: ADA CALIX ADMIT DATE: 03/15/19 ACCOUNT NO: [id number] ROOM NO: [facility] [place] AGE: 18 REPORT TYPE: OPERATIVE REPORT SEX: F ADMITTING PHYSICIAN:Salma Castellanos MD ATTENDING PHYSICIAN:Salma Castellanos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
[2024-04-28] MEDS ORDERED: methocarbamoL 750 MG TAB ONE (21:50)
[2024-04-28] MEDS ORDERED: IBUPROFEN 400 MG TAB ONE (21:50)
[2024-04-28] MEDS ORDERED: CODEINE 30MG/APAP 300MG TAB ONE (21:50)
[2024-04-28 22:22] LABS: Specific Gravity 1.015 (1.005-1.030)
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
[2024-04-28 23:05] VITALS: BP 124/86; TEMP 97.1; O2SAT 95
--- NOTE | 2024-04-29 12:08 | EKG ---
Test Date: 2024-04-28 Test Time: 20:38:09 Bending Machine Operator: MACI MEASUREMENT RESULTS: Intervals: Rate: 84 VA: 152 QRSD: 82 QT: 366 QTc: 432 [place]: P: 44 VA: 152 QRS: 54 T: 54 INTERPRETIVE STATEMENTS: Normal sinus rhythm Low voltage QRS Borderline ECG No previous ECG available for comparison Electronically Signed On 04-29-24 12:07:10 CDT by Moises Montoya
== END 2024-04-28 22:59 | disposition home or self-care (01) ==
LOC: ER 20:09
DX: O9A.211 Injury, poisoning and certain other consequences of external causes complicating pregnancy, first trimester (principal); S30.1XXA Contusion of abdominal wall, initial encounter; W22.10XA Striking against or struck by unspecified automobile airbag, initial encounter; V49.9XXA Car occupant (driver) (passenger) injured in unspecified traffic accident, initial encounter; Z3A.08 8 weeks gestation of pregnancy
CPT/HCPCS: 81025; 93005; 99284

== ENCOUNTER 2024-09-19 03:01 | Emergency (ER) | payer OTHER, SELFPAY ==
--- OUTSIDE RECORDS SUMMARY | 2024-09-19 03:05 | XMS REPORT | Continuity of Care Document ---
Author Name Unknown Address [address] [facility] [address] [place] [address] [facility] thconnect Address [address] [facility] [place] [address] Care Team Providers Care Laboratory Miller Name Role Phone Salma Castellanos Attending Clinician Unavail able Doctor Unassigned, [place] Attending Clinician U Bharathi Parker Admitting Clinician Unavailab le Payers Payer Name Policy Type Policy Number Effective Date Expirati on Date Source Problems Condition Name Condition Details Condition Category Status Onset Date Resolution Date Last Treatment Date Treating Clinician Comments Source Influenza vaccinatio n declined Influenza vaccinatio n declined Disease Active 2017-08 00:00: 00 [facility] Supervisio n of high risk , antepartum Supervisio n of high risk , antepartum Disease Active 2017-08 00:00: 00 [facility] Hypertrigl yceridemia Hypertrigl yceridemia Disease Active 03-26 00:00: 00 [facility] Allergies, Adverse Reactions, Alerts Allergy Name Allergy Type Status Severity Reaction(s) Onset Date Inactive Date Treating Clinician Comments Source No Known Allergie s DA Active U 03-15 00:00: 00 [facility] No Known Allergie s DA Active U 03-15 00:00: 00 [facility] Social History Social Habit Start Date Stop Date Quantity Comments Source ASSERTION 2018-05-14 00:00:00 [facility] Alcohol intake 2019-04-29 00:00:00 2019-04-29 00:00:00 0 /d [facility] Sex Assigned At 2000 00:00:00 2000 00:00:00 [facility] Smoking Status Start Date Stop Date Source Never smoker [facility] Medications Ordered Medication Name Filled Medication Name Start Date Stop Date Current Medication? Ordering Clinician Indication Dosage Frequency Signature (SIG) Comments Components Source multivitami n ( VITAMIN) tablet 2017-08 00:00: 00 Yes [id number] 1{tbl} Take 1 tablet by mouth daily. [facility] Procedures Procedure Date / Time Performed Performing Clinicia n Source EXTERNAL PROVIDER - ADC REFERRAL 2019-03-26 05:01:00 Doctor Unassigned, [place] [facility] Encounters Start Date/Time End Date/Time Encounter Type Admission Type Attending Clinicians Care Facility Care Department Encounter ID Source 2024-04-08 10:37:36 2024-04-08 10:37:36 Outpatient [facility] [id number] Darrion Collado 2022-09-23 14:53:00 2022-09-23 14:53:00 Outpatient Salma Michuad [facility] OUTD [id number] [facility] 2021-05-04 00:00:00 2021-05-04 00:00:00 Letter (Out) Doctor Unassigned, [place] [facility] 1..114 350.1.13.10 4.2.7.2.686 [id number] [facility] 2019-03-26 00:00:00 2019-03-26 00:00:00 Orders Only Doctor Unassigned, [place] [facility] 1.840.114 350.1.13.10 4.2.7.2.686 [id number] [facility] Results Test Description Test Time Test Comments Results Resul t Comments Source - US PELVIS COMPLETE 2022-09-24 00:00:00 [facility] 2000 Sex: F Name: ADA CALIX [facility] : 2000 Age/S: 22 / F [address] [place] [address] Unit #: [id number] Loc: [place] [address] Phys: Salma Castellanos MD Acct: [id number] Dis Date: Status: DEP CLI PHONE #: [phone] Exam Date: 09/23/20221807 FAX #: [phone] Reason: AMENORRHEA. EXAMS: CPT CODE: [id number] US PELVIS COMPLETE 61251 PROCEDURE INFORMATION: Exam: US Pelvis Complete (Transabdominal), [...] CC: Salma Castellanos MD Technologist: Sarah Belcher Trnflb Date/Time: 09/24/2022 (6147) [email or web address] Orig Print D/T: S: 09/24/2022 (0587) Probe: PAGE 1 Signed Report - US TRANSVAGINAL NON OB 2022-09-24 00:00:00 [facility] 2000 Sex: F Name: ADA CALIX [facility] : 2000 Age/S: 22 / F [address] [place] [address] Unit #: [id number] Loc: [facility] [place] [address] Phys: Salma Castellanos MD Acct: [id number] Dis Date: Status: DEP CLI PHONE #: [phone] Exam Date: 09/23/2022 180 FAX #: [phone] Reason: AMENORRHEA. EXAMS: CPT CODE: [id number] [place] [address] PROCEDURE INFORMATION: Exam: US Pelvis Complete (Transabdominal), [...] trace fluid in the endocervical canal. at 1021 Reported and signed by: Jasen Suresh M.D. CC: Salma Castellanos MD Technologist: Sarah Belcher Trnscb Date/Time: 09/24/2022 (0484) DonnyO Orig Print D/T: S: 09/24/2022 (2479) Probe: [id number] PAGE 1 Signed Report SURGICAL SPECIMENS 2019-03-19 08:38:00 --------RUN DATE: 03/19/19 [facility] *LIVE* PAGE 1 RUN TIME: 837 Specimen Inquiry RUN USER: INTERFACE --------PATIENT: ADA CALIX LOC: RADHA U #: [id number] AGE/SX: 18/ ROOM: [facility] RE03/15/19REG DR: Salma Castellanos MD : [birth year] BED: 1 DIS: STATUS: ADM IN TLOC: -------- SPEC #: [id number] RECD: 03/17/19 STATUS: DONNA REYES #: [id number] DELANEY: 03/17/19 [facility] DR: Salma Castellanos MD ENTERED: 03/18/19 SP TYPE: SURG SPEC OTHR DR: Mayito MOMIN,Bharathi Dickson MD: LEVEL 4 CODES: [id number] - PLACENTA, NOS COPIES TO: Salma Castellanos MD [address] [place] [address] [email or web address] Jose Ramon Edmond JR, MD [address] 2005[address] Bharathi Chaney DO [address] [place] [address] [address] [place] [address] PROCEDURES: LEVEL 4 (Incomplete) TISSUES: 1. PLACENTA, [...] CONTINUED ON NEXT PAGE --------RUN DATE: 03/19/19 [facility] *LIVE* PAGE 2 RUN TIME: 837 Specimen Inquiry RUN USER: INTERFACE --------SPEC #: [id number] PATIENT: ADA CALIX #[id number] (Continued) GROSS AND MICROSCOPIC (Continued) MICROSCOPIC EXAMINATION: [...] END OF REPORT COMMENTS: POD #1 and #[facility] [id number] 07:31:00* Test Item Value Reference Range Interpretation [...] IUnit/L 30-165 N COMMENTS: POD #1CBC W/AUTO [id number] 06:53:00* Test Item Value Reference Range Interpretation [...] COMMENTS: POD #1 and #2CORD ARTERIAL BLOOD [id number] 21:24:00* Test Item Value Reference Range Interpretation [...] O2S/C) 10 % 25-45 L RAPID PLASMA [id number] 11:21:00* Test Item Value Reference Range Interpretation Comme nts RAPID PLASMA REAGIN (test co de = RPR) NONREACTIVE NONREACTIVE AG HEPATITIS B [id number] 11:21:00* Test Item Value Reference Range Interpretation Comme nts AG HEPATITIS B SURFACE (test code = HBSAG) NON REACTIVE INDEX NonReactive AB HIV 1 11:21:00* Test Item Value Reference Range Interpretation Comme nts AB HIV 1 2 (test code = SBX64GO) NONREACTIVE INDEX NONREACTIVE RAPID PLASMA [id number] 20:32:00* Test Item Value Reference Range Interpretation Comme nts RAPID PLASMA REAGIN (test code = RPR) NONREACTI VE AG HEPATITIS B [id number] 20:32:00* Test Item Value Reference Range Interpretation Comme nts AG HEPATITIS B SURFACE (test code = HBSAG) NON REACTIVE INDEX NonReactive AB HIV 1 20:32:00* Test Item Value Reference Range Interpretation Comme nts AB HIV 1 2 (test code = WIB95MF) NONREACTIVE INDEX NONREACTIVE RAPID PLASMA [id number] 15:21:00* Test Item Value Reference Range Interpretation Comme nts RAPID PLASMA REAGIN (test code = RPR) NONREACTI VE AG HEPATITIS B [id number] 15:21:00* Test Item Value Reference Range Interpretation Comme nts AG HEPATITIS B SURFACE (test code = HBSAG) NON REACTIVE INDEX NonReactive AB HIV 1 15:21:00* Test Item Value Reference Range Interpretation Comme nts AB HIV 1 2 (test code = RDH36QB) INDEX NONREACTIVE CBC W/AUTO [id number] 14:38:00* Test Item Value Reference Range Interpretation [...] = MDIFF) NO - MRI ABDOMEN W/O [id number] 10:32:00FAX: Abdirahman Fay MD [phone] [place]: St: PRE FAX: Bharathi Chaney [phone] ----- Name: ADA CALIX [facility] : 2000 Age/S: 18/F [address] [place] [address] Unit #: [id number] Loc: [place] [address] Phys: Abdirahman Shelton MD Acct: [id number] Dis Date: Status: PRE CLI PHONE #: [phone] Exam Date: 11/20/2018 1319 FAX #: [phone] Reason: LEFT HYRDONEPHROSIS EXAMS: CPT CODE: [id number] MRI ABDOMEN W/O CON 48019 MRI WITHOUT IV CONTRAST 11/20/2018 AT 1117 [...] Report (CO NTINUED) FAX: Abdirahman Fay MD [phone] [place]: St: PRE FAX: Bharathi Chaney [phone] Name: ADA CALIX [facility] : 2000 Age/S: 18/F [address] [place] [address] Unit #: [id number] Loc: [place] [address] Phys: Abidrahman Shelton MD Acct: [id number] Dis Date: Status: PRE CLI PHONE #:[phone] Exam Date: 11/20/2018 1319 FAX #: [phone] Reason: LEFT HYRDONEPHROSIS EXAMS: CPTCODE: [id number] MRI ABDOMEN W/O CON 31288 (Continued) IMPRESSION: 1. Unremarkable right kidney with [...] Notes Date/Time Note Provider Source 2019-03-19 11:15:00 [facility] ([facility]) OB Disch REPORT#:[id number] REPORT STATUS: Signed DATE:03/19/19 TIME: 1115 PATIENT: ADA CALIX UNIT #: [id number] ROOM/BED: [place] [address] : [birth year] AGE: 18 SEX: F ATTEND: [...] % (Auto) (14.0 - 32.0 %) 16.5 Richardson % (Auto) (4.8 - 9.0 %) 4.7 L Eos % (Auto) (0.3 - 3.7 %) 0.3 Baso % (Auto) (0.0 - 2.0 %) 0.2 Neut # (Auto) (2.0 - 7.6 x10 3/uL) 9.18 H Lymph # (Auto) (1.0 - 3.8 x10 3/uL) 1.95 Richardson # (Auto) (0.1 - 0.8 x10 3/uL) [...] up in: 3 weeks at 1119 RPT #:[id number] END OF REPORT [facility] 2019-03-18 12:36:00 [facility] ([facility]) OB Postpart Progr Note REPORT#:[id number] REPORT STATUS: Signed DATE:03/18/19 TIME: 1236 PATIENT: ADA CALIX UNIT #: [id number] ROOM/BED: [place] [address] : [birth year] AGE: 18 SEX: F ATTEND: [...] % (Auto) (14.0 - 32.0 %) 16.5 Richardson % (Auto) (4.8 - 9.0 %) 4.7 L Eos % (Auto) (0.3 - 3.7 %) 0.3 Baso % (Auto) (0.0 - 2.0 %) 0.2 Neut # (Auto) (2.0 - 7.6 x10 3/uL) 9.18 H Lymph # (Auto) (1.0 - 3.8 x10 3/uL) 1.95 Richardson # (Auto) (0.1 - 0.8 x10 3/uL) [...] discussed with: patient, nurse at 1237 RPT #:[id number] END OF REPORT [facility] 2019-03-17 15:23:00 [facility] ([facility]) Pain Management Progress Note REPORT#:[id number] REPORT STATUS: Signed DATE:03/17/19 TIME: 1522 PATIENT: ADA CALIX UNIT #: [id number] ROOM/BED: [place] [address] : [birth year] AGE: 18 SEX: F ATTEND: Salma Castellanos MD ADM AUTHOR: Yonis Hinkle MD * ALL edits or amendments must be made on the electronic/computer document * Diagnosis, Assessment Plan Free text A P: Pain Management Rounds: Patient seen and examined Epidural in place and working well No side effects noted Epidural d/c today per request at 1523 RPT #:[id number] END OF REPORT [facility] 2019-03-17 12:03:00 [facility] ([facility]) OB Postpart Progr Note REPORT#:[id number] REPORT STATUS: Signed DATE:03/17/19 TIME: 1203 PATIENT: ADA CALIX UNIT #: [id number] ROOM/BED: [place] [address] : [birth year] AGE: 18 SEX: F ATTEND: [...] (Auto) (14.0 - 32.0 %) 13.6 L Richardson % (Auto) (4.8 - 9.0 %) 5.0 Eos % (Auto) (0.3 - 3.7 %) 0.1 L Baso % (Auto) (0.0 - 2.0 %) 0.2 Neut # (Auto) (2.0 - 7.6 x10 3/uL) 12.09 H Lymph # (Auto) (1.0 - 3.8 x10 3/uL) 2.05 Richardson # (Auto) (0.1 - 0.8 x10 3/uL) [...] discussed with: patient, nurse at 1210 RPT #:[id number] END OF REPORT [facility] 2019-03-16 22:31:00 [facility]) Post Anesthesia Evaluation REPORT#:[id number] REPORT STATUS: Signed DATE:03/16/19 TIME: 2230 PATIENT: ADA CALIX UNIT #: [id number] ROOM/BED: [place] [address] : [birth year] AGE: 18 SEX: F ATTEND: [...] N/V: no Anesthesia complications: no at 2232 [facility] #:[id number] END OF REPORT [facility] 2019-03-16 21:49:00 [id number] [place] [address] PATIENT NAME: ADA CALIX ADMIT DATE: 03/15/19 ACCOUNT NO: [id number] ROOM NO: [facility] AGE: 18 REPORT TYPE: OPERATIVE REPORT SEX: F ADMITTING PHYSICIAN:Salma Castellanos MD ATTENDING PHYSICIAN:Salma Castellanos MD OPERATION DATE: 03/16/2019 START TIME: 2059 p.m. PROCEDURE PERFORMED: Primary low transverse section. SURGEON: Salma Castellanos MD WIND TURBINE ENGINEER: Tim Husain, licensed surgical scrub tech. PREOPERATIVE DIAGNOSES: Single intrauterine at 40+1 weeks' [...] cord reduced. Cord was clamped and cut. handed off to the waiting pediatricians. Cord [...] By: Salma Castellanos MD WT: OP:GMAJO/CJ/SOCO Conf#: [id number]/DID#: [id number] Authenticated by Salma Castellanos MD On 04/01/2019 08:16:37 PM at 2016 PATIENT NAME: ADA CALIX [facility] 2019-03-16 21:32:00 [facility] ([facility]) OB Delivery Note REPORT#:[id number] REPORT STATUS: Signed DATE:03/16/19 TIME: 2131 PATIENT: ADA CALIX UNIT #: [id number] ROOM/BED: [place] [address] : 99 AGE: 18 SEX: F ATTEND: [...] positive Prophylaxis administered: ampicillin evaluation at delivery: process maintenance technician Admission EGA (wks/days): 40 weeks EGA at [...] delivery Mother's condition: mother stable 's condition: stable in room Op/Inv Proc Note - Brief )(Start date: 03/16/19 )(Start time: 2058 )( Procedure(s) performed: prim low transverse c/s )( Primary Surgeon: Dr Castellanos )( Afloat Cryptologic Manager(s): Tim Husain. LSA )( Pre-procedure diagnosis: SIUP [...] normal limits bilaterally. Condition: stable Dictation number: [id number] at 2149 RPT #:[id number] END OF REPORT [facility] 2019-03-16 20:35:00 [facility] ([facility]) OB Admission / H P REPORT#:[id number] REPORT STATUS: Signed DATE:03/16/19 TIME: 2034 PATIENT: ADA CALIX UNIT #: [id number] ROOM/BED: [place] [address] : 99 AGE: 18 SEX: F ATTEND: [...] status , fetus can be managed at [facility]. OBhx: Denies GynHx: 12/Irregular/ Denies fibroids, cyst, [...] GBS ppx Pitocin augmentation at 2047 RPT #:[id number] END OF REPORT [facility] 2019-03-16 20:17:00 [facility] ([facility]) Pain Management Consult Note REPORT#:[id number] REPORT STATUS: Signed DATE:03/16/19 TIME: 2016 PATIENT: ADA CALIX UNIT #: [id number] ROOM/BED: [place] [address] : [birth year] AGE: 18 SEX: F ATTEND: [...] Anesthesiology department will follow. at 2018 RPT #:[id number] END OF REPORT [facility] 2019-03-15 15:20:00 [id number] [place] [address] PATIENT NAME: ADA CALIX ADMIT DATE: ACCOUNT NO: [id number] ROOM NO: AGE: 18 REPORT TYPE: eELECTROCARDIOGRAM REPORT SEX: F ADMITTING PHYSICIAN:Salma Castellanos MD ATTENDING PHYSICIAN:Salma Castellanos MD Order: [id number] Test Reason : PRE OP Test Date/Time [...] MD at 1914 PATIENT NAME: ADA CALIX [facility]
[2024-09-19 04:27] LABS: Specific Gravity 1.011 (1.005-1.030); Sqamous Epithelial <5 /HPF (None Seen); Urine Bacteria None Seen /HPF (<20); Urine Bilirubin NEGATIVE (Negative); Urine Blood Negative (Negative); Urine Clarity Turbid (Clear); Urine Color Light-Yellow (Yellow); Urine Culture Reflex Order NOT NEEDED; Urine Glucose NEGATIVE (Negative); Urine Ketones NEGATIVE (Negative); Urine Microscopic Reflex YN ORDER UMIC; Urine Mucus Slight /HPF (None Seen); Urine Nitrite NEGATIVE (Negative); Urine Protein NEGATIVE (Negative); Urine RBC <5 /HPF (None Seen); Urine Urobilinogen Normal (Normal); Urine WBC <5 /HPF (<5)
[2024-09-19 04:29] LABS: Specific Gravity 1.011 (1.005-1.030)
[2024-09-19 05:11] LABS: Absolute Eosinophils 0.2 K/uL (0-0.5); Absolute Lymphocytes (CBC) 1.9 K/uL (0.7-4.9); Absolute Monocytes 0.3 K/uL (0.1-1.3); Absolute Neutrophil 4.9 K/uL (1.8-8.0); Basophils % 0.3 % (0-1.3); Eosinophils % 2.1 % (0-4.4); Hematocrit 35.8 % (36.0-45.0); Hemoglobin 12.6 g/dL (12.0-15.0); Lymphocytes % 26.4 % (15.3-44.8); MCH 31.2 pg (27.0-35.0); MCHC 35.2 g/dL (32.0-36.0); MCV 88.6 fL (80-100); MPV 6.8 fL (7.6-11.3); Monocytes % 4.1 % (3.3-12.3); Neutrophils % 67.1 % (41.7-73.7); Nucleated Red Blood Cells % 0.1 % (0-0); Platelets 337 thou/uL (152-406); RBC Red Blood Cell Count 4.04 M/uL (3.86-4.86); Red Cell Distribution Width 13.2 % (12.1-15.2)
--- NOTE | 2024-09-19 05:41 | RAD REPORT ---
Ultrasound OB-less than 14 weeks INDICATION: Vaginal bleeding. COMPARISON: None. TECHNIQUE: Grayscale and color flow sonographic evaluation of the pelvis. FINDINGS: There is a single viable intrauterine gestation measuring 11 weeks and 5 days with estimated date of delivery 04/05/2025. cardiac activity is present with normal heart rate measuring 159 BPM bpm. Brenda-rump length measures 5.5 cm. Ovaries are normal bilaterally. No adnexal masses. No free fluid. IMPRESSION: Single viable intrauterine gestation measuring 11 weeks and 5 days. Electronically signed by: Alka Priest MD 09/19/2024 05:37 AM [facility] Z9 Due to temporary technical issues with the PACS/Power scribe reporting system, reports are being sign ed by the in-house radiologist without review as a courtesy to ensure prompt reporting the interpreting rad iologist is fully responsible for the content of the report. Transcribed Date/Time: 09/19/2024 5:41 AM
[2024-09-19 05:57] LABS: Anion Gap 9.1 mEq/L (5.0-15.0); Potassium 3.1 mEq/L (3.5-5.1)
--- NOTE | 2024-09-19 06:08 | EDPHYS ---
Physician Documentation [facility] Name: Falguni Pringle Age: 24 yrs Sex: Female : 2000 Arrival Date: 09/19/2024 Time: 03:01 Bed 15 Private MD: ED Physician Vishnu Smith HPI: 09/19 03:55 This 24 yrs old Female presents to ER via Ambulatory with complaints of cp Vaginal Bleeding, 12 weeks preg. 03:55 The patient presents to the emergency department with abdominal pain, of the left lower cp quadrant, that started this morning, described as crampy, vaginal bleeding, described as spotting. The estimated gestational age is 12 weeks. course: care: private OB physician, Ultrasound: the patient had an ultrasound, which was normal. Associated signs and symptoms: Pertinent negatives: diarrhea, dysuria, fever, ruptured membranes, vomiting. AGENT SPA DESK: 03:28 3, Full Term 1, Living 1, LMP 06/25/2024, Verified, EDC 04/01/2025, vc1 Gestational age from LMP: 12 weeks 2 days 03:55 2, Living 1, Verified cp Historical: - Allergies: 03:25 No Known Allergies; vc1 - PMHx: 03:25 Anemia; atrial septal defect; Blood clotting disorder; doesn't clot well; vc1 - PSHx: 03:25 section; Open heart surgery at [age] years old; vc1 - Immunization history:: Adult Immunizations up to date. - Infectious Disease History:: Denies. - Social history:: Smoking status: Patient/guardian denies using tobacco. ROS: 04:00 : Positive for vaginal bleeding, cp 04:00 Eyes: Negative for injury, pain, redness, and discharge, cp 04:00 Constitutional: Negative for body aches, chills, fever, 04:00 Cardiovascular: Negative for chest pain, 04:00 Respiratory: Negative for cough, shortness of breath, wheezing, 04:00 Abdomen/GI: Positive for abdominal cramps, 04:00 All other systems are negative, Exam: 04:05 Constitutional: The patient appears in no acute distress, alert, awake, non-toxic, well cp developed, well nourished, 04:05 Head/Face: Normocephalic, atraumatic. cp 04:05 Eyes: Periorbital structures: appear normal, Conjunctiva: normal, no exudate, no injection, Sclera: no appreciated abnormality, Lids and lashes: appear normal, bilaterally, 04:05 ENT: External ear(s): are unremarkable, Nose: is normal, Mouth: Lips: moist, Oral mucosa: moist, Posterior pharynx: Airway: no evidence of obstruction, patent, 04:05 Chest/axilla: Inspection: normal, 04:05 Cardiovascular: Rate: normal, Rhythm: regular, 04:05 Respiratory: the patient does not display signs of respiratory distress, Respirations: normal, no use of accessory muscles, no retractions, labored breathing, is not present, Breath sounds: are clear throughout, no decreased breath sounds, no stridor, no wheezing, 04:05 Abdomen/GI: Inspection: abdomen appears normal, Palpation: soft, in all quadrants, mild abdominal tenderness, in the left lower quadrant, rebound tenderness, is not appreciated, involuntary guarding, is not appreciated, 04:05 Back: CVA tenderness, is absent, Vital Signs: 03:22 BP 117 / 73; Pulse 95; Resp 14; Temp 99; Pulse Ox 100% ; Weight 56.7 kg; Height 5 ft. 0 vc1 in. ; Pain 0/10; 03:30 BP 118 / 68; Pulse 89; Resp 19; Pulse Ox 98% ; ay 04:30 BP 109 / 88; Pulse 92; Resp 17; Pulse Ox 99% ; ay 05:30 BP 121 / 86; Pulse 90; Resp 20; Pulse Ox 100% ; ay 03:22 Body Mass Index 24.41 (56.70 kg, 152.4 cm) vc1 03:22 Pain Scale: Adult vc1 MDM: 03:25 Medical Screening Exam initiated 04:00 Differential diagnosis: STD, ectopic . 06:06 Data reviewed: vital signs, nurses notes, lab test result(s), radiologic studies, cp ultrasound. 06:07 I considered the following discharge prescriptions or medication management in the emergency department Medications were administered in the Emergency Department. See OCT. 06:07 Counseling: I had a detailed discussion with the patient and/or guardian regarding the historical points, exam findings, and any diagnostic results supporting the discharge/admit diagnosis, lab results, radiology results, the need for outpatient follow up, an OB/Gyne specialist, to return to the emergency department if symptoms worsen or persist or if there are any questions or concerns that arise at home. 09/19 03:47 Order name: Abo/rh Typing; Complete Time: 05:54 09/19 05:54 Interpretation: Reviewed. 09/19 03:47 Order name: Basic Metabolic Panel; Complete Time: 06:02 09/19 06:03 Interpretation: Normal except: K 3.1; CL 108; GLUC 121; CRE 0.53. 09/19 03:47 Order name: CBC with Diff; Complete Time: 05:26 cp 09/19 05:26 Interpretation: Normal except: HCT 35.8; MPV 6.8. 09/19 03:47 Order name: Test, Urine; Complete Time: 04:47 cp 09/19 04:47 Interpretation: Reviewed. 09/19 03:47 Order name: Quantitative Hcg; Complete Time: 06:02 cp 09/19 03:47 Order name: Urinalysis w/ reflexes; Complete Time: 04:47 09/19 04:47 Interpretation: Normal except: UCLA Turbid; UESTR 25. 09/19 04:32 Order name: 1St Trimest Single 1St Fetus; Complete Time: 05:43 EDMS 09/19 05:44 Interpretation: Report reviewed. 09/19 03:47 Order name: IV Saline Lock; Complete Time: 05:32 cp 09/19 03:47 Order name: Labs collected and sent; Complete Time: 05:33 cp 09/19 03:47 Order name: NPO; Complete Time: 04:17 cp Administered Medications: 06:28 Drug: Acetaminophen PO 1000 mg PO once Route: PO; ay 07:34 Follow up: Response: Medication administered at discharge. ay 06:28 Not Given (Patient Refused): ns 0.9% 500 ml 500 ml IV at 1 bolus once; to be given as a ay bolus over 30 minutes 06:28 Drug: Potassium PO Effervescent Tablet 50 mEq PO once; dissolve in 4 ounces of water or ay juice Route: PO; 07:33 Follow up: Response: Medication administered at discharge. ay Disposition: 08:47 Co-signature as Attending Physician, Vishnu Smith MD I agree with the assessment and sharan plan of care. Disposition Summary: 09/19/24 06:07 Discharge Ordered Notes: Location: Home cp Problem: new cp Symptoms: have improved cp Condition: Stable cp Diagnosis - Threatened cp - Hypokalemia cp Followup: cp - With: Private Physician - When: 2 - 3 days - Reason: Worsening of condition Discharge Instructions: - Discharge Summary Sheet cp - Abdominal Pain During cp - Potassium Content of Foods cp - Care cp - Threatened Miscarriage cp - Vaginal Bleeding During , First Trimester cp - First Trimester of cp - Activity Restriction During cp - Hypokalemia cp Forms: - Medication Reconciliation Form cp - Antibiotic Education cp - Prescription Opioid Use cp - Patient Portal Instructions cp - Leadership Thank You Letter cp Signatures: Dispatcher [employer] EDMS Vishnu Smith MD MD cha Page, Corey, PA PA cp Chelsey Mccartney RN RN vc1 Harjit Aldana RN RN ay Corrections: (The following items were deleted from the chart) 03:47 03:47 ABO/RH TYPING+BB.LAB.BRZ ordered. EDMS EDMS 03:47 03:47 BASIC METABOLIC PANEL+C.LAB.BRZ ordered. EDMS EDMS 03:47 03:47 CBC+H.LAB.BRZ ordered. EDMS EDMS 03:47 03:47 Test, Urine+UC.LAB.BRZ ordered. EDMS EDMS 03:47 03:47 QUANTITATIVE HCG+C.LAB.BRZ ordered. EDMS EDMS 03:47 03:47 Urinalysis+U.LAB.BRZ ordered. EDMS EDMS 03:47 03:47 Transvaginal Ob+US.RAD.BRZ ordered. EDMS EDMS 05:42 05:42 Transvaginal Ob+US.RAD.BRZ ordered. EDMS EDMS
--- NOTE | 2024-09-19 06:08 | ER ---
Nurse's Notes [facility] Name: Falguni Pringle Age: 24 yrs Sex: Female : 2000 Arrival Date: 09/19/2024 Time: 03:01 Bed 15 Private MD: Diagnosis: Threatened ;Hypokalemia Presentation: 09/19 03:22 Chief complaint: Patient states: 12 weeks , spotting around 0200, cramping on vc1 left lower abdomen. Coronavirus screen: Client denies travel out of the [place] in the last 14 days. At this time, the client does not indicate any symptoms associated with coronavirus-19. Ebola Screen: Patient negative for fever greater than or equal to 101.5 degrees Fahrenheit, and additional compatible Ebola Virus Disease symptoms Patient denies exposure to infectious person. Patient denies travel to an Ebola-affected area in the 21 days before illness onset. No symptoms or risks identified at this time. Initial Sepsis Screen: Does the patient meet any 2 criteria? No. Patient's initial sepsis screen is negative. Does the patient have a suspected source of infection? No. Patient's initial sepsis screen is negative. Risk Assessment: Do you want to hurt yourself or someone else? Patient reports no desire to harm self or others. Note Dr.Eddie Gm Zavaleta. Onset of symptoms was September 19, 2024. Care prior to arrival: None. Activity prior to arrival: None. Mechanism of Injury: No Mechanism of Injury. Transition of care: patient was not received from another setting of care. 03:22 Method Of Arrival: Ambulatory vc1 03:22 Acuity: JACK 3 vc1 Triage Assessment: 03:32 General: Appears in no apparent distress. comfortable, slender, well groomed, well vc1 developed, well nourished, Behavior is calm, cooperative, appropriate for age. Pain: Complains of pain in left lower quadrant. EENT: No deficits noted. No signs and/or symptoms were reported regarding the EENT system. Neuro: Level of Consciousness is awake, alert, obeys commands, Oriented to person, place, time, situation, Appropriate for age. Cardiovascular: No deficits noted. Capillary refill < 3 seconds Patient's skin is warm and dry. Respiratory: Airway is patent. GI: No deficits noted. No signs and/or symptoms were reported involving the gastrointestinal system. : Reports urinary frequency, vaginal bleeding that is spotty. Derm: Skin is intact, is healthy with good turgor, Skin is dry, Skin is normal, Skin temperature is warm. Musculoskeletal: Circulation, motion, and sensation intact. Range of motion: intact in all extremities. 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 - Infectious Disease History:: Denies. - Social history:: Smoking status: Patient/guardian denies using tobacco. Screenin:27 [facility] ED Fall Risk Assessment (Adult) History of falling in the last 3 months, vc1 including since admission No falls in past 3 months (0 pts) Confusion or Disorientation No (0 pts) Intoxicated or Sedated No (0 pts) Impaired Gait No (0 pts) Mobility Assist Device Used No (0 pt) Altered Elimination No (0 pt) Score/Fall Risk Level 0 - 2 = Low Risk Oriented to surroundings, Maintained a safe environment, Educated pt \T\ family on fall prevention, incl call for assistance when getting out of bed. Abuse screen: Denies threats or abuse. Nutritional screening: No deficits noted. Tuberculosis screening: No symptoms or risk factors identified. Assessment: 03:25 General: Appears in no apparent distress. comfortable, Behavior is calm, cooperative. ay Pain: Denies pain. Neuro: Level of Consciousness is awake, alert, obeys commands, Oriented to person, place, time, situation, Speech is normal. Cardiovascular: Capillary refill < 3 seconds. Respiratory: Airway is patent Respiratory effort is even, unlabored, Respiratory pattern is regular, symmetrical. GI: No signs and/or symptoms were reported involving the gastrointestinal system. : Reports vaginal bleeding that is spotty. EENT: No signs and/or symptoms were reported regarding the EENT system. Derm: No signs and/or symptoms reported regarding the dermatologic system. Vital Signs: 03:22 BP 117 / 73; Pulse 95; Resp 14; Temp 99; Pulse Ox 100% ; Weight 56.7 kg; Height 5 ft. 0 vc1 in. ; Pain 0/10; 03:30 BP 118 / 68; Pulse 89; Resp 19; Pulse Ox 98% ; ay 04:30 BP 109 / 88; Pulse 92; Resp 17; Pulse Ox 99% ; ay 05:30 BP 121 / 86; Pulse 90; Resp 20; Pulse Ox 100% ; ay 03:22 Body Mass Index 24.41 (56.70 kg, 152.4 cm) vc1 03:22 Pain Scale: Adult vc1 ED Course: 03:07 Patient arrived in ED. gm2 03:08 Vishnu Del Castillo PA is PHCP. cp 03:08 Vishnu Smith MD is Attending Physician. cp 03:24 Triage completed. vc1 03:27 Arm band placed on right wrist. vc1 04:17 Urinalysis w/ reflexes Sent. vc1 04:17 Test, Urine Sent. vc1 04:32 1St Trimest Single 1St Fetus In Process Unspecified. EDMS 05:21 Harjit Aldana, RN is Primary Nurse. ay 06:00 IV discontinued, intact, bleeding controlled, No redness/swelling at site. Pressure ay dressing applied. Administered Medications: 06:28 Drug: Acetaminophen PO 1000 mg PO once Route: PO; ay 07:34 Follow up: Response: Medication administered at discharge. ay 06:28 Not Given (Patient Refused): ns 0.9% 500 ml 500 ml IV at 1 bolus once; to be given as a ay bolus over 30 minutes 06:28 Drug: Potassium PO Effervescent Tablet 50 mEq PO once; dissolve in 4 ounces of water or ay juice Route: PO; 07:33 Follow up: Response: Medication administered at discharge. ay Medication: 03:31 VIS not applicable for this client. vc1 Outcome: 06:07 Discharge ordered by . cp 06:10 Discharged to home ambulatory, with friend, ay 06:10 Condition: stable 06:10 Discharge instructions given to patient, Instructed on discharge instructions, follow up and referral plans. Demonstrated understanding of instructions, follow-up care, 07:29 Patient left the ED. ko1 Signatures: Dispatcher [employer] EDMS Vishnu Del Castillo PA PA cp Calcote, Vanessa, RN RN vc1 Stephanie Liu RN RN Danielle Carey 2 Harjit Aldana RN RN ay Corrections: (The following items were deleted from the chart) 03:31 03:28 2, Full Term 1, Living 1, LMP 06/25/2024, Verified, EDC vc1 04/01/2025, Gestational age from LMP: 12 weeks 2 days vc1
[2024-09-19] MEDS ORDERED: ACETAMINOPHEN 500 MG TAB ONE (06:19)
[2024-09-19] MEDS ORDERED: NA CHLORIDE 0.9% 500 ML ONE (06:19)
[2024-09-19] MEDS ORDERED: POTASSIUM 25 MEQ EFFERV TAB ONE (06:19)
[2024-09-19 07:33] VITALS: BP 117/73; TEMP 99; O2SAT 100
== END 2024-09-19 07:29 | disposition home or self-care (01) ==
LOC: ER 03:01
DX: O20.0 Threatened abortion (principal); O99.281 Endocrine, nutritional and metabolic diseases complicating pregnancy, first trimester; E87.6 Hypokalemia; Z3A.12 12 weeks gestation of pregnancy
CPT/HCPCS: 36415; 76801; 80048; 81001; 81025; 84702; 85025; 86900; 86901; 99284; J7040